=== PATIENT | male | born 1980 | race Caucasian/White ===

== ENCOUNTER 2018-04-11 11:30 | Emergency (ER) | payer BC, SELFPAY ==
--- NOTE | 2018-04-11 11:48 | ED.GENADUL_ITS ---
Discharge Plan Disposition Patient Disposition: HOME Condition: Stable Discharge Details Chief Complaint: Sorethroat Clinical Impression: Acute left otitis media, Pharyngitis Primary Care Provider: Clarence Ellis ED Provider: Gatito Patel Home Meds and New Rx's Prescriptions: New amoxicillin 875 mg tablet 875 mg PO BID Qty: 20 RF: 0 Continue citalopram [Celexa] 20 MG tablet 20 mg PO DAILY RF: 0 omeprazole magnesium [Prilosec OTC] 20 MG tablet,delayed release (DR/EC) 20 mg PO DAILY RF: 0 nabumetone 750 MG tablet 750 mg PO DAILY PRN PRNRF: 0 Discharge Instructions Instructions: Pharyngitis (ED), Otitis Media (ED) Additional Instructions: Feel free to return to the emergency department for any new or worsening symptoms otherwise follow-up with your primary care provider for reassessment if not improving. Stand Alone Forms: Work Release Referrals: Clarence Ellis [Primary Care Provider] - (As needed for reassessment) Medical Decision Making Patient presenting to the emergency department for complaint of sore throat and left ear pain. Patient states that symptoms started yesterday and progressed throughout the day. Patient states some feeling of warmth and pressure to his left ear but denies any overall fever or chills, cough, difficulty breathing. Physical exam is positive for findings of left otitis media and mild tonsillary erythema but otherwise no signs of peritonsillar abscess, hepatitis, retropharyngeal abscess. Given 2 days of symptoms patient was placed upon amoxicillin. After discussion of diagnosis and plan of care patient states no further needs, questions, or concerns and states clear understanding to return to the emergency department for any worsening symptoms. Patient to follow-up with primary care provider as needed for reassessment if not improving . HPI General Mode of arrival: ambulatory . Date/Time Provider Initiated Documentation: 04/11/18 11:34 . Limitations to Documentation: no limitations . Information obtained by: patient and RN notes reviewed . History of Present Illness 37 year old M presents to the emergency department with the chief complaint of sore throat/ear ache, described as moderate, with intensity rated at 7. Quality is described as aching, and is localized to the left. Patient reports no radiation. Patient started experiencing this day(s) (2) and it has been constant. No relieving factors improve symptom(s), No exacerbating factors reported . Patient notes no other symptoms.. Patient did receive the following treatments prior to arrival, none Related Data Home Medications Medication Instructions Recorded Confirmed citalopram [Celexa] 20 mg PO DAILY 08/19/16 04/11/18 omeprazole magnesium [Prilosec OTC] 20 mg PO DAILY 08/19/16 04/11/18 nabumetone 750 mg PO DAILY PRN PRN 03/16/17 04/11/18 amoxicillin 875 mg PO BID #20 tab 04/11/18 Previous Rx's Medication Instructions Recorded amoxicillin 875 mg PO BID #20 tab 04/11/18 Allergies Allergy/AdvReac Type Severity Reaction Status Date / Time shellfish derived Allergy Severe Anaphylaxsi Unverified 04/11/18 11:54 s pertussis vaccine,adsorbed Allergy Mild unknown Unverified 04/11/18 11:54 [Pertussis Vaccine,Adsorbed] latex Allergy Skin Rash Unverified 04/11/18 11:54 silicone Allergy Skin Rash Unverified 04/11/18 11:54 Review of Systems Constitutional Denies body ache(s) and Denies fever(s) ENT Reports as per HPI, Denies ear discharge, Reports otalgia, Reports facial pain, Reports nasal congestion, Reports sore throat, Denies throat swelling and Denies tongue swelling Cardiovascular Denies chest pain and Denies dyspnea Respiratory Denies dyspnea Gastrointestinal Denies abdominal pain, Reports diarrhea, Denies nausea and Denies vomiting Integumentary/Breasts Denies rash Neurologic Denies confusion and Denies sensory deficit Psychiatric Denies confusion Allergic/Immunologic Denies throat swelling and Denies tongue swelling FORMERLY [facility] Medical History Abnormal weight gain Binge eating Depression Elevated glucose GERD (gastroesophageal reflux disease) Kidney stone Low back pain Sleep disorder Thoracic back pain Social History Smoking/Tobacco Use Status: Never Surgical History EGD - MAC (03/18/17) Exam Const General: cooperative, no acute distress and not ill appearing Orientation: alert, awake and oriented x3 HENMT Ears: TM normal on the right and TM abnormal bulging on the left, erythematous on the left and with loss of landmarks on the left General nose exam: external nose normal Face and sinus: normal facial exam Mouth: oral mucosae normal, oropharynx normal, moist mucous membranes, no drooling and no trismus Throat: posterior oropharynx abnormal edema (mild) Resp Effort & Inspection: normal respiratory effort, able to speak in complete sentences and no respiratory distress Auscultation: clear to auscultation bilaterally Cardio Rate: regular rate Rhythm: regular rhythm Heart Sounds: S1 normal and S2 normal Skin General skin exam: no rashes or lesions noted Neuro General: alert, awake, oriented x3, moves all extremities and no focal motor deficits Sensory Exam: no sensory deficits noted
[2018-04-11 11:50] VITALS: BP 121/73; PULSE 86; RESP 18; TEMP 37
== END 2018-04-11 12:15 | disposition home or self-care (01) ==
LOC: ER 12:26
PROVIDERS: Emergency Provider Nurse Practitioner Family; PCP Specialist/Technologist Athletic Trainer
DX: J02.9 Acute pharyngitis, unspecified (principal); H66.92 Otitis media, unspecified, left ear
CPT/HCPCS: 99283

== ENCOUNTER 2018-05-30 07:42 | Emergency (ER) | payer BC, SELFPAY ==
[2018-05-30 07:49] VITALS: BP 144/83; PULSE 119; RESP 16; TEMP 37; O2SAT 93
--- NOTE | 2018-05-30 08:06 | W.ED.GENAD ---
Discharge Plan Disposition Patient Disposition: HOME Condition: Good Discharge Details Chief Complaint: RashLesion Clinical Impression: Urticaria Primary Care Provider: Clarence Ellis ED Provider: Cabrera Trivedi Home Meds and New Rx's Prescriptions: New prednisone 20 mg tablet 60 mg PO DAILY 5 Days Qty: 15 RF: 0 No Action citalopram [Celexa] 20 MG tablet 20 mg PO DAILY RF: 0 omeprazole magnesium [Prilosec OTC] 20 MG tablet,delayed release (DR/EC) 20 mg PO DAILY RF: 0 nabumetone 750 MG tablet 750 mg PO DAILY PRN PRNRF: 0 Discharge Instructions Instructions: Urticaria (ED) Additional Instructions: follow up with your primary care provider within a week especially if symptoms continue and discuss having allergy testing if you have worsening trouble breathing, severe abdominal pain, persistent vomit or trouble swallowing liquids return to the emergency department Stand Alone Forms: Work Release Medical Decision Making 37 yo male comes in with rash that is itching, started on back yesterday and now on abdomen arms and legs. Has no mucous membrane involvement on exam, has what appears to be urticaria on abdomen, back and arms and legs (mild erythema of various sizes that is blanching and not tender or warm to touch). No respiratory or gi symptoms so doubt anaphylaxis. Has tried benadryl without relief, will try steroids and advised f/u with pcp and return precautions given. Denies new meds or detergents. who sleeps in same bed has no symptoms so doubt bed bugs and no itching of hands so doubt scabies Differential Diagnosis uritcaria, contact dermatitis HPI General Mode of arrival: ambulatory. Date/Time Provider Initiated Documentation: 05/30/18 08:00. Limitations to Documentation: no limitations. Information obtained by: patient. History of Present Illness 37 year old M presents to the emergency department with the chief complaint of rash, described as mild, and is localized to the back, abdomen, upper extremity and lower extremity. Patient started experiencing this day(s) (1) and it has been constant. No relieving factors improve symptom(s), No exacerbating factors reported . Related Data Home Medications Medication Instructions Recorded Confirmed citalopram [Celexa] 20 mg PO DAILY 08/19/16 05/30/18 omeprazole magnesium [Prilosec OTC] 20 mg PO DAILY 08/19/16 05/30/18 nabumetone 750 mg PO DAILY PRN PRN 03/16/17 05/30/18 prednisone 60 mg PO DAILY 5 Days #15 tab 05/30/18 Previous Rx's Medication Instructions Recorded prednisone 60 mg PO DAILY 5 Days #15 tab 05/30/18 Allergies Allergy/AdvReac Type Severity Reaction Status Date / Time shellfish derived Allergy Severe Anaphylaxsi Unverified 05/30/18 07:52 s pertussis vaccine,adsorbed Allergy Mild unknown Unverified 05/30/18 07:52 [Pertussis Vaccine,Adsorbed] latex Allergy Skin Rash Unverified 05/30/18 07:52 silicone Allergy Skin Rash Unverified 05/30/18 07:52 General Stated Complaint: RashLesion GAMALIEL: 4 Review of Systems Review of Systems All systems reviewed & are unremarkable except as noted in HPI and below Constitutional Denies chills, Denies fever(s) and Denies weakness Eyes Denies loss of vision ENT Denies change in voice Cardiovascular Denies chest pain and Denies dyspnea Respiratory Denies dyspnea Gastrointestinal Denies abdominal pain, Denies nausea and Denies vomiting Genitourinary Denies dysuria Musculoskeletal Denies joint swelling Neurologic Denies loss of vision and Denies weakness Psychiatric Denies depression Endocrine Denies cold intolerance and Denies heat intolerance Exam Const General: no acute distress Orientation: alert HENRI Head: normal to inspection Ears: external ears normal General nose exam: external nose normal Mouth: moist mucous membranes Eyes General: appearance normal, both eyes and all related structures Neck Neck: normal visual inspection Resp Effort & Inspection: normal respiratory effort and able to speak in complete sentences Cardio Rate: regular rate (92 on my exam) Neuro General: alert and oriented x3 Extrem General: normal to inspection Psych Mental Status: mental status grossly normal Course Vital Signs Temperature 37 C 05/30/18 07:49 Pulse 119 H 05/30/18 07:49 Respiratory Rate 16 05/30/18 07:49 Blood Pressure 144/83 H 05/30/18 07:49 Pulse Oximetry 93 L 05/30/18 07:49 Temperature 37 C 05/30/18 07:49 Temperature Source Skin 05/30/18 07:49 Pulse 119 H 05/30/18 07:49 Respiratory Rate 16 05/30/18 07:49 Respiratory Effort Non-Labored 05/30/18 07:49 Blood Pressure 144/83 H 05/30/18 07:49 Blood Pressure Position Sitting 05/30/18 07:49 Pulse Oximetry 93 L 05/30/18 07:49 Oxygen Delivery Method Room Air 05/30/18 07:49 Oxygen Flow Rate 0 05/30/18 07:49 Pain Level 2 05/30/18 07:49
--- NOTE | 2018-05-30 08:10 | ED.GENADUL_ITS ---
Discharge Plan Disposition Patient Disposition: HOME Condition: Good Discharge Details Chief Complaint: RashLesion Clinical Impression: Urticaria Primary Care Provider: Clarence Ellis ED Provider: Cabrera Trivedi Home Meds and New Rx's Prescriptions: New prednisone 20 mg tablet 60 mg PO DAILY 5 Days Qty: 15 RF: 0 No Action citalopram [Celexa] 20 MG tablet 20 mg PO DAILY RF: 0 omeprazole magnesium [Prilosec OTC] 20 MG tablet,delayed release (DR/EC) 20 mg PO DAILY RF: 0 nabumetone 750 MG tablet 750 mg PO DAILY PRN PRNRF: 0 Discharge Instructions Instructions: Urticaria (ED) Additional Instructions: follow up with your primary care provider within a week especially if symptoms continue and discuss having allergy testing if you have worsening trouble breathing, severe abdominal pain, persistent vomit or trouble swallowing liquids return to the emergency department Stand Alone Forms: Work Release Medical Decision Making 37 yo male comes in with rash that is itching, started on back yesterday and now on abdomen arms and legs. Has no mucous membrane involvement on exam, has what appears to be urticaria on abdomen, back and arms and legs (mild erythema of various sizes that is blanching and not tender or warm to touch). No respiratory or gi symptoms so doubt anaphylaxis. Has tried benadryl without relief, will try steroids and advised f/u with pcp and return precautions given. Denies new meds or detergents. who sleeps in same bed has no symptoms so doubt bed bugs and no itching of hands so doubt scabies Differential Diagnosis uritcaria, contact dermatitis HPI General Mode of arrival: ambulatory . Date/Time Provider Initiated Documentation: 05/30/18 08:00 . Limitations to Documentation: no limitations . Information obtained by: patient . History of Present Illness 37 year old M presents to the emergency department with the chief complaint of rash, described as mild, and is localized to the back, abdomen, upper extremity and lower extremity. Patient started experiencing this day(s) (1) and it has been constant. No relieving factors improve symptom(s), No exacerbating factors reported . Related Data Home Medications Medication Instructions Recorded Confirmed citalopram [Celexa] 20 mg PO DAILY 08/19/16 05/30/18 omeprazole magnesium [Prilosec OTC] 20 mg PO DAILY 08/19/16 05/30/18 nabumetone 750 mg PO DAILY PRN PRN 03/16/17 05/30/18 prednisone 60 mg PO DAILY 5 Days #15 tab 05/30/18 Previous Rx's Medication Instructions Recorded prednisone 60 mg PO DAILY 5 Days #15 tab 05/30/18 Allergies Allergy/AdvReac Type Severity Reaction Status Date / Time shellfish derived Allergy Severe Anaphylaxsi Unverified 05/30/18 07:52 s pertussis vaccine,adsorbed Allergy Mild unknown Unverified 05/30/18 07:52 [Pertussis Vaccine,Adsorbed] latex Allergy Skin Rash Unverified 05/30/18 07:52 silicone Allergy Skin Rash Unverified 05/30/18 07:52 General Stated Complaint: RashLesion GAMALIEL: 4 Review of Systems Review of Systems All systems reviewed & are unremarkable except as noted in HPI and below Constitutional Denies chills, Denies fever(s) and Denies weakness Eyes Denies loss of vision ENT Denies change in voice Cardiovascular Denies chest pain and Denies dyspnea Respiratory Denies dyspnea Gastrointestinal Denies abdominal pain, Denies nausea and Denies vomiting Genitourinary Denies dysuria Musculoskeletal Denies joint swelling Neurologic Denies loss of vision and Denies weakness Psychiatric Denies depression Endocrine Denies cold intolerance and Denies heat intolerance Exam Const General: no acute distress Orientation: alert HENOR Head: normal to inspection Ears: external ears normal General nose exam: external nose normal Mouth: moist mucous membranes Eyes General: appearance normal, both eyes and all related structures Neck Neck: normal visual inspection Resp Effort & Inspection: normal respiratory effort and able to speak in complete sentences Cardio Rate: regular rate (92 on my exam) Neuro General: alert and oriented x3 Extrem General: normal to inspection Psych Mental Status: mental status grossly normal Course Vital Signs Temperature 37 C 05/30/18 07:49 Pulse 119 H 05/30/18 07:49 Respiratory Rate 16 05/30/18 07:49 Blood Pressure 144/83 H 05/30/18 07:49 Pulse Oximetry 93 L 05/30/18 07:49 Temperature 37 C 05/30/18 07:49 Temperature Source Skin 05/30/18 07:49 Pulse 119 H 05/30/18 07:49 Respiratory Rate 16 05/30/18 07:49 Respiratory Effort Non-Labored 05/30/18 07:49 Blood Pressure 144/83 H 05/30/18 07:49 Blood Pressure Position Sitting 05/30/18 07:49 Pulse Oximetry 93 L 05/30/18 07:49 Oxygen Delivery Method Room Air 05/30/18 07:49 Oxygen Flow Rate 0 05/30/18 07:49 Pain Level 2 05/30/18 07:49
== END 2018-05-30 08:15 | disposition home or self-care (01) ==
PROVIDERS: Emergency Provider Emergency Medicine; PCP Specialist/Technologist Athletic Trainer
DX: L50.9 Urticaria, unspecified (principal)
CPT/HCPCS: 99283

== ENCOUNTER 2018-06-05 17:27 | Emergency (ER) | payer BC, SELFPAY ==
[2018-06-05] VITALS (61 sets, daily range): BP systolic 135–152; BP diastolic 56–97; PULSE 83–101; RESP 13–31; TEMP 36.7; O2SAT 92–100
--- NOTE | 2018-06-05 17:54 | DI.RAD_ITS ---
SYMPTOM/DIAGNOSIS: COUGH WITH RIB PAIN PA AND LATERAL CHEST: The lungs are well expanded. There is no pneumothorax or pleural effusion. No infiltrates are seen in the lungs. The heart is not enlarged. The hilar structures, mediastinum and tracheal air column are intact. No acute rib fracture is seen.
--- NOTE | 2018-06-05 18:38 | ED.GENADUL_ITS ---
Discharge Plan Disposition Patient Disposition: HOME Condition: Fair Discharge Details Chief Complaint: Chest/Rib Clinical Impression: Bronchitis Primary Care Provider: Clarence Ellis ED Provider: Chelsea Mills Home Meds and New Rx's Prescriptions: New azithromycin 250 mg tablet 250 mg PO DAILY 4 Days Qty: 4 RF: 0 Continue omeprazole magnesium [Prilosec OTC] 20 MG tablet,delayed release (DR/EC) 20 mg PO DAILY RF: 0 nabumetone 750 MG tablet 750 mg PO DAILY PRN PRNRF: 0 Discharge Instructions Instructions: Acute Bronchitis (ED) Additional Instructions: Encourage hydration. Tylenol and/or ibuprofen as needed for discomfort. No rib fracture abnormality was noted on your chest x-ray. Exam is primarily concerning for bronchitis. However, I am concerned that you may be developing a pneumonia. We will treat you with azithromycin as well as inhaled steroids. You may use the albuterol inhaler 2puffs every 4 hours as needed for shortness of breath or wheezing. Please always use with a spacer. You will need to follow up with primary care in one week for reevaluation. At that time, please also discuss your elevated glucose and elevated liver enzymes. You will need to have this evaluated further. If you develop increased pain, difficulty breathing, inability to stay hydrated or other new/worsening symptoms please seek care urgently once again. Referrals: Clarence Ellis [Primary Care Provider] - Discharge Data Discharge Date/Time-TO BE ENTERED AT DEPARTURE: 06/05/18 20:58 Medical Decision Making Patient is a 37-year-old male, accompanied by significant other, chief complaint shortness of breath, cough and left-sided chest discomfort. He reports the cough is been present for the past 3 weeks. States the cough has been mildly productive. He is endorsing shortness of breath, particularly with the cough. States that today, while having a coughing fit he had a sudden onset of left-sided chest wall discomfort which is reproducible on exam. No known trauma. Since that time, he said pain with coughing and deep inhalation. reports that he sounded wheezy. On exam, he is noted to be diffusely wheezy with expiration. He is tachycardic at the 1 teens at the time of my exam. Oxygen is 98% at the time of my exam. However, when he first presented his O2 was slightly low at 94. Nontoxic. No calf tenderness. No recent travel , patient is a non-smoker. However, I am concerned for possible PE although this is not my #1 differential diagnosis. We will obtain laboratory evaluation as well as chest x-ray. Given the progression of symptoms, I am concern he may have developed pneumonia. Patient has history of GERD, obesity, NASRA and kidney stones. Will also give albuterol updraft. Labs significant for leukocytosis. Glucose is over 300. Patient has had elevated glucose previously. He reports that he last had this assessed by his primary care 1 year ago. No anion gap. Liver enzymes are also elevated. These have not been elevated historically. I discussed this with the patient. I did reevaluate his abdomen and he continues to have no discomfort in the right upper quadrant. This may be related to his acute illness. I have asked that he discuss this further with his primary care and have this reevaluated Chest x-ray reviewed by radiologist. No pneumothorax, effusion noted. No cardiomegaly. No displaced rib fracture noted. No acute cardiopulmonary process visualized by radiologist. Discussed these findings with the patient. After albuterol inhaler, patient sounds much more clear. He is feeling much improved. He was on steroids last week and did not feel that this was improving her cough at that time. He did consider repeating the steroids given the diagnosis of bronchitis and wheezing on exam. However, with his elevated glucose, I am concerned that this may be what initially caused his sudden bump in glucose. Patient be placed on antibiotics as I am still concern for possible pneumonia given the leukocytosis and findings on physical exam. Advised Tylenol and/or ibuprofen as needed for discomfort. He will be prescribed albuterol inhaler with spacer. He was given strict return precautions. He will follow-up with his primary care this week for reevaluation and to discuss his elevated glucose as well as the elevation in his liver enzymes. All of his questions and concerns were addressed and he is in agreement this plan. [facility] General Mode of arrival: ambulatory . Date/Time Provider Initiated Documentation: 06/05/18 17:53 . Limitations to Documentation: no limitations . Information obtained by: patient and family . History of Present Illness 37 year old M presents to the emergency department with the chief complaint of cough and chest discomfort, described as moderate, with intensity rated at 5. Quality is described as aching, and is localized to the chest and left. Patient reports no radiation. Patient started experiencing this hour(s) and it has been constant. Movement worsens symptoms and Other factors that worsen symptoms (coughing and deep breaths) . Patient notes chest pain, cough and shortness of breath; denies fever/chills, headaches, loss of appetite, nausea/vomiting, rash and weakness. Patient did receive the following treatments prior to arrival, NSAID Related Data Home Medications Medication Instructions Recorded Confirmed omeprazole magnesium [Prilosec OTC] 20 mg PO DAILY 08/19/16 06/05/18 nabumetone 750 mg PO DAILY PRN PRN 03/16/17 06/05/18 azithromycin 250 mg PO DAILY 4 Days #4 tab 06/05/18 Previous Rx's Medication Instructions Recorded azithromycin 250 mg PO DAILY 4 Days #4 tab 06/05/18 Allergies Allergy/AdvReac Type Severity Reaction Status Date / Time shellfish derived Allergy Severe Anaphylaxsi Unverified 06/05/18 17:36 s pertussis vaccine,adsorbed Allergy Mild unknown Unverified 06/05/18 17:36 [Pertussis Vaccine,Adsorbed] latex Allergy Skin Rash Unverified 06/05/18 17:36 silicone Allergy Skin Rash Unverified 06/05/18 17:36 General Stated Complaint: Chest/Rib GAMALIEL: 3 Review of Systems Constitutional Reports as per HPI, Denies chills, Denies fever(s) and Denies headache(s) ENT Reports as per HPI, Denies abnormal hearing, Denies change in voice, Denies vertigo, Denies ear discharge, Denies otalgia, Denies headache(s), Reports nasal congestion, Denies sinus pain, Denies sinus pressure and Reports sore throat Cardiovascular Reports as per HPI and Reports chest pain (Left lateral chest wall discomfort began suddenly this afternoon after) Respiratory Reports as per HPI Gastrointestinal Reports as per HPI, Denies abdominal pain, Denies change in stool character, Denies nausea and Denies vomiting Genitourinary Denies system reviewed and no additional complaints, except as docu (Denies any change in urinary habits) Musculoskeletal Reports as per HPI and Denies back pain Integumentary/Breasts Reports as per HPI, Denies rash, Denies unusual bruising and Denies wounds Neurologic Denies abnormal hearing, Denies vertigo and Denies headache(s) Exam Const General: cooperative, healthy appearing, comfortable, no acute distress, well developed and well groomed Nutritional Appearance: well nourished and overweight Orientation: alert and awake [facility] Head: normal to inspection, normocephalic and atraumatic Ears: hearing grossly normal bilaterally, external ears normal and TM's normal bilaterally General nose exam: external nose normal and nares normal Face and sinus: normal facial exam, sinuses nontender and face symmetric Mouth: oral mucosae normal, lip normal, tongue normal, moist mucous membranes, no muffled voice and no trismus Teeth and gingiva: dentition normal Throat: posterior oropharynx normal, tonsils normal and uvula midline Eyes General: appearance normal, both eyes and all related structures Neck Neck: normal visual inspection, full ROM, no lymphadenopathy and no meningeal signs Chest Chest: abnormal palpation of chest wall (Patient has focal discomfort with palpation over the left lateral ribs near the number seventh rib. No pain with AP or lateral chest wall compression.) and no crepitus Resp Effort & Inspection: normal respiratory effort, able to speak in complete sentences and no respiratory distress Auscultation: clear to auscultation bilaterally, no rales, no rhonchi and no wheezes Cardio Rate: regular rate Rhythm: regular rhythm Heart Sounds: S1 normal and S2 normal GI Inspection: normal to inspection Palpation: soft, no hepatosplenomegaly, not firm, no guarding and nontender Back/Spine/Pelvis Thoracic/Lumbar Spine: thoracic and lumbar spine normal to inspection Skin General skin exam: no rashes or lesions noted Trauma: no lacerations or abrasions Neuro General: alert and awake Cognition: normal cognition Speech: speech normal Gait: normal gait Extrem General: normal to inspection, no pedal edema, no calf tenderness and normal gait Psych Appearance: grossly normal and well kempt Mental Status: mental status grossly normal Speech and Movement: speech and movement normal Course Vital Signs Temperature 36.7 C 06/05/18 17:34 Pulse 101 H 06/05/18 17:34 Respiratory Rate 20 06/05/18 17:34 Blood Pressure 149/84 H 06/05/18 17:34 Pulse Oximetry 94 L 06/05/18 17:34 Temperature 36.7 C 06/05/18 17:34 Temperature Source Skin 06/05/18 17:34 Pulse 101 H 06/05/18 17:34 Respiratory Rate 20 06/05/18 17:34 Respiratory Effort 06/05/18 17:57 Respiratory Depth Shallow 06/05/18 17:57 Respiratory Pattern Normal 06/05/18 17:57 Blood Pressure 149/84 H 06/05/18 17:34 Blood Pressure Position Sitting 06/05/18 17:34 Pulse Oximetry 94 L 06/05/18 17:34 Oxygen Delivery Method Room Air 06/05/18 17:34 Oxygen Flow Rate 0 06/05/18 17:34 Pain Level 8 06/05/18 17:57
--- NOTE | 2018-06-05 18:51 | DI.VRAD_ITS ---
EXAM: XR Chest, 2 Views EXAM DATE/TIME: 06/05/2018 5:55 PM CLINICAL HISTORY: 37 years old, male; Signs and symptoms; Cough; Patient HX: Cough with rib pain l side TECHNIQUE: XR of the chest, 2 views. COMPARISON: CR CHEST 2 VIEWS PA,LAT 06/19/2015 2:50 PM FINDINGS: Lungs: Clear lungs. Pleural space: No pneumothorax. No sizable pleural effusion. Heart/Mediastinum: No cardiomegaly. Bones/joints: No displaced rib fracture. IMPRESSION: 1. Clear lungs. 2. No displaced rib fracture. Dictated and Authenticated by: Eliazar Wright MD. Ordering:MATT AKERS MD
[2018-06-05 19:05] LABS: Abs Immature Grans 0.05 k/cumm (0.0-0.09); Absolute Eosinophil Count 1.21 k/cumm (0.0-0.7); Absolute Lymphocyte Count 2.49 k/cumm (1.2-3.4); Absolute Monocyte Count 0.64 k/cumm (0.11-0.7); Absolute Neutrophil Count 7.68 k/cumm (1.2-6.7); Basophils % 0.2; HGB 14.2 g/dL (13.5-17.5); Immature Grans % 0.4; Lymphocytes % 20.6; Mean Corpuscular Hemoglobin 28.1 pg (27.0-33.0); Mean Platelet Volume 11.2 fL (8.0-11.0); Monocytes % 5.3; Neutrophils % 63.5; Platelet Count 251 x1000/uL (130-400); RBC 5.06 m/cumm (4.50-6.00); RBC Distribution Width 14.6 % (11.8-14.1)
[2018-06-05 19:20] LABS: INR 1.1 (1.0-3.5); PTT Activated 21.2 sec (21.0-31.4); Prothrombin Time 10.4 sec (9.3-10.8)
[2018-06-05 19:21] LABS: ALT 158 U/L (12-78); AST 93 U/L (15-37); Absolute Basophil Count 0.02 k/cumm (0.0-0.2); Albumin 3.3 g/dL (3.4-5.0); Alkaline Phosphatase 133 U/L (46-116); Anion Gap 7.9 mmol/L (3-11); BUN 12 mg/dL (7-18); Bilirubin, Total 0.5 mg/dL (0.2-1.0); CO2 28.1 mmol/L (21.0-32.0); CREATININE 0.95 mg/dL (0.70-1.30); Calcium 8.7 mg/dL (8.5-10.1); Chloride 100 mmol/L (98-107); Glucose 325 mg/dL (70-100); Magnesium 1.9 mg/dL (1.8-2.4); Potassium 3.7 mmol/L (3.5-5.1); Sodium 136 mmol/L (136-145); Total Protein 6.9 g/dL (6.4-8.2)
[2018-06-05 19:25] LABS: Troponin I < 0.02 ng/mL (0.00-0.06)
[2018-06-05 19:40] LABS: D-Dimer 411 ng/mlFEU (<500)
[2018-06-05] MEDS: Albuterol 2.5 MG/3 ML INH SOLN VIAL UPD (19:40)
[2018-06-05] MEDS: Normal Saline 1,000 ML 1000 ML IV (19:50)
[2018-06-05] MEDS: Azithromycin 250 MG TAB 500 MG PO (20:34)
[2018-06-05] MEDS: Albuterol HFA 8 GM 60 PUFF INH IH (20:34)
== END 2018-06-05 20:58 | disposition home or self-care (01) ==
PROVIDERS: Emergency Provider Physician Assistant; PCP Specialist/Technologist Athletic Trainer
DX: J20.9 Acute bronchitis, unspecified (principal)
CPT/HCPCS: 36415; 80053; 94640; 96360; 99284; 71046; 83735; 84484; 85025; 85379; 85610; 85730; J7613

== ENCOUNTER 2018-06-12 10:25 | Outpatient (REF) | payer BC, SELFPAY ==
[2018-06-14 11:37] LABS: Hepatitis C Ab w Rflx HCV PCR Negative (NEGAT)
[2018-06-14 12:13] LABS: HBs Antibody, Quant 382.9 mIU/mL; Hepatitis B Surface Ab Positive
[2018-06-14 12:16] LABS: Hepatitis B Surface Ag Negative (NEGAT)
[2018-06-14 14:10] LABS: C-Peptide 4.2 ng/mL (1.1 - 4.4)
== END 2018-06-12 10:45 ==
LOC: NCHCN 10:25
PROVIDERS: PCP Specialist/Technologist Athletic Trainer; Visit Provider Specialist/Technologist Athletic Trainer
DX: R74.0 Nonspecific elevation of levels of transaminase and lactic acid dehydrogenase [LDH] (principal); Z11.59 Encounter for screening for other viral diseases; E11.65 Type 2 diabetes mellitus with hyperglycemia
CPT/HCPCS: 86706; 86803; 87340; 84681; 87350

== ENCOUNTER 2018-07-14 08:22 | Outpatient (CLI) | payer BC, SELFPAY ==
--- NOTE | 2018-07-14 11:00 | DIABASSESS_ITS ---
DESCRIPTION/ASSESSMENT: Flavio Singh presents for Medical Nutrition Therapy for diabetes with newly diagnosed type 2 diabetes. He has family history. He is experiencing thirst and frequent urination. Food - Flavio has made many changes to his food choices since diagnosis by decreasing sugar sweetened beverages; decreased his portions, increased fish and chicken. He has fruit smoothie for breakfast; occasionally snacks on fruit, chips or popcorn in small portions. He usually skips lunch and eats dinner 3-5PM of protein, vegetables, brown rice. He occasionally snacks on fruit, popcorn or a chocolate before bed. He states he has decreased 2 pant sizes over the past month. 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 He reports falling while walking. Medication - Metformin 750 twice daily Monitoring - initially 395 now 128-130 most mornings. Risks/Related health history - he mentions possibility of fatty liver, he takes Prilosec and has discontinued his antidepressant without negative effect. 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 He denies symptoms of depression. INTERVENTION: Food Guidelines - reviewed diabetes food guidelines; reinforced his present food choices and behaviors. He denies hunger or cravings. He feels good about his changes and believes he can continue them. He is encouraged to increase vegetables as he is able. Mindful eating regarding hunger/fullness briefly discussed. Physical Activity - Discussed possible activities and explained benefits for physical well being and diabetes management. He is currently not working due to school vacation and will explore ways to increase movement as prevention of medication progression. Sing/talk evaluation explained. Monitoring - discussed meaningful monitoring in pairs to obtain feedback about impact of food in blood sugars. Risks/Related health history - discussed weight loss and decrease in sugar intake as strategy to prevent fatty liver and he has already achieved weight loss and curbing sugar intake. Coping - reviewed impact of stress on glycemic control and weight management. Has good insight on stressors and managing them. ACTION PLAN: Continue current food plan; prioritize lower glycemic food choices; consider hunger/fullness Explore exercise inside i.e. walking in place on days he does not work; start slowly for short periods of time Monitor blood sugars around meals with more carbohydrate Individual MNT __4__ units billed TIME IN: 1055 OUT: 1200 No DM group education series being offered at this time.
== END 2018-07-14 08:42 ==
PROVIDERS: PCP Specialist/Technologist Athletic Trainer; Visit Provider Dietitian, Registered
DX: E11.9 Type 2 diabetes mellitus without complications (principal); Z71.3 Dietary counseling and surveillance
CPT/HCPCS: 97802

== ENCOUNTER 2018-07-31 11:03 | Outpatient (CLI) | payer BC, SELFPAY ==
[2018-07-31 12:49] LABS: Anion Gap 9.8 mmol/L (3-11); BUN 9 mg/dL (7-18); CO2 29.2 mmol/L (21.0-32.0); CREATININE 0.69 mg/dL (0.70-1.30); Calcium 9.1 mg/dL (8.5-10.1); Chloride 102 mmol/L (98-107); Cholesterol 173 mg/dL (50-200); Glucose 97 mg/dL (70-100); HDL Cholesterol 50 mg/dL (40-60); LDL CHOLESTEROL 109 mg/dL (<100); Potassium 4.4 mmol/L (3.5-5.1); Sodium 141 mmol/L (136-145); Triglyceride 57 mg/dL (30-150)
== END 2018-07-31 11:23 ==
PROVIDERS: PCP Specialist/Technologist Athletic Trainer; Visit Provider Specialist/Technologist Athletic Trainer
DX: Z00.00 Encounter for general adult medical examination without abnormal findings (principal); Z13.220 Encounter for screening for lipoid disorders; Z13.228 Encounter for screening for other metabolic disorders
CPT/HCPCS: 36415; 80048; 80061; 83721

== ENCOUNTER 2018-11-05 11:24 | Emergency (ER) | payer OTHER, SELFPAY ==
[2018-11-05 11:31] VITALS: BP 131/79; PULSE 86; RESP 16; TEMP 36.7; O2SAT 96
--- NOTE | 2018-11-05 12:05 | DI.RAD_ITS ---
SYMPTOMS/DIAGNOSIS: AXIAL LOAD INJURY, S/P FALL, PAIN IN L2-3 REGION LUMBAR SPINE: There is no evidence of fracture. The alignment appears normal. The disc spaces are well maintained. There are minimal degenerative changes. IMPRESSION: Minimal degenerative changes. No acute abnormality.
--- NOTE | 2018-11-05 12:12 | ED.GENADUL_ITS ---
Discharge Plan Disposition Patient Disposition: HOME Discharge Details Chief Complaint: Nk/Back Pain Clinical Impression: Back pain due to injury Primary Care Provider: Frances Kim ED Provider: Francisco Seth Home Meds and New Rx's Prescriptions: No Action Prilosec OTC 20 MG tablet,delayed release (DR/EC) 20 mg PO DAILY RF: 0 nabumetone 750 MG tablet 750 mg PO DAILY PRN PRNRF: 0 metformin 750 mg Tablet Extended Release 24 Hr 1,500 mg PO DAILY RF: 0 Discharge Instructions Instructions: Back Pain (ED) Additional Instructions: Your x-rays here in the emergency department were negative. Pain may persist over the next several weeks. Tylenol and Motrin are appropriate for pain. Referrals: Frances Kim [Primary Care Provider] - 1 week Discharge Data Discharge Date/Time-TO BE ENTERED AT DEPARTURE: 11/05/18 13:30 Medical Decision Making This is a nontoxic-appearing 38-year-old gentleman presenting with the above chief complaint. Vitals stable. Exam reveals focal tenderness over the lower back. No cauda equina symptoms. X-rays here are read as normal. We discussed supportive care at home. Return precautions provided. He will follow-up with primary care provider should symptoms persist. He is stable for discharge at this time. Imaging Data Radiologic Study: Attestation: I personally reviewed and interpreted this imaging study as follows: Imaging: X-Ray Radiologist's impression: No acute fracture or dislocation HPI General Date/Time Provider Initiated Documentation: 11/05/18 12:05 . HPI Narrative: Patient is a 38-year-old male presenting to the emergency department with a chief complaint of low back pain status post fall occurring here at work. Patient states that he slipped on the ground around falling backwards on his buttock region. He is complaining of a lot of pain in the tailbone and lower back region. No numbness or tingling in the legs. No other reported injuries Related Data Home Medications Medication Instructions Recorded Confirmed Prilosec OTC 20 mg PO DAILY 08/19/16 11/05/18 nabumetone 750 mg PO DAILY PRN PRN 03/16/17 11/05/18 metformin 1,500 mg PO DAILY 11/05/18 11/05/18 Allergies Allergy/AdvReac Type Severity Reaction Status Date / Time shellfish derived Allergy Severe Anaphylaxsi Unverified 11/05/18 11:33 s pertussis vaccine,adsorbed Allergy Mild unknown Unverified 11/05/18 11:33 [Pertussis Vaccine,Adsorbed] latex Allergy Skin Rash Unverified 11/05/18 11:33 silicone Allergy Skin Rash Unverified 11/05/18 11:33 General Stated Complaint: Nk/Back Pain GAMALIEL: 4 Review of Systems Constitutional Reports as per HPI, Denies fever(s), Denies weakness and Denies weight loss ENT Reports system reviewed and no additional complaints, except as docu and Denies neck pain Musculoskeletal Denies abnormal gait, Reports back pain, Denies deformity, Denies joint swelling, Denies neck pain, Denies numbness, Denies stiffness and Denies tingling Neurologic Denies abnormal gait, Denies numbness, Denies tingling and Denies weakness PFSH Medical History Abnormal weight gain Binge eating Depression Elevated glucose GERD (gastroesophageal reflux disease) Kidney stone Low back pain Sleep disorder Thoracic back pain Surgical History EGD - MAC (03/18/17) Social History Smoking/Tobacco Use Status: Never Alcohol Intake: never Drug use: Never Substance use type: does not use Do you feel safe in your relationship?: Yes Exam Const General: cooperative, healthy appearing, comfortable and no acute distress Nutritional Appearance: average body habitus Orientation: alert [facility] Head: normal to inspection General nose exam: external nose normal Face and sinus: normal facial exam Mouth: oral mucosae normal Eyes General: appearance normal, both eyes and all related structures Neck Neck: normal visual inspection, full ROM and supple Chest Chest: normal inspection of the chest and normal palpation of entire chest wall Resp Effort & Inspection: normal respiratory effort and able to speak in complete sentences Auscultation: clear to auscultation bilaterally Cardio Jugular venous pressure: no JVD Palpation: normal PMI Rate: regular rate Rhythm: regular rhythm Heart Sounds: S1 normal and S2 normal GI Inspection: normal to inspection Palpation: soft Back/Spine/Pelvis Back: no CVA tenderness Thoracic/Lumbar Spine: thoracic and lumbar spine normal to inspection, No thoracic spinal tenderness, lumbar spinal tenderness and No straight leg raise positive Pelvis: no pain with anterior-posterior compression Coccyx: tenderness Skin General skin exam: no rashes or lesions noted Neuro General: alert, awake and oriented x3 Speech: speech normal Motor: muscle tone normal throughout and strength 5/5 throughout Extrem General: normal to inspection and full ROM Course Vital Signs Temperature 36.7 C 11/05/18 11:31 Pulse 86 11/05/18 11:31 Respiratory Rate 16 11/05/18 11:31 Blood Pressure 131/79 11/05/18 11:31 Pulse Oximetry 96 11/05/18 11:31 Temperature 36.7 C 11/05/18 11:31 Temperature Source Skin 11/05/18 11:31 Pulse 86 11/05/18 11:31 Respiratory Rate 16 11/05/18 11:31 Respiratory Effort Non-Labored 11/05/18 11:31 Blood Pressure 131/79 11/05/18 11:31 Blood Pressure Position Sitting 11/05/18 11:31 Pulse Oximetry 96 11/05/18 11:31 Oxygen Delivery Method Room Air 11/05/18 11:31 Oxygen Flow Rate 0 11/05/18 11:31 Pain Level 7 11/05/18 11:55
--- NOTE | 2018-11-05 13:37 | DI.VRAD_ITS ---
EXAM: XR Lumbosacral Spine, 4 or 5 Views EXAM DATE/TIME: 11/05/2018 12:07 PM CLINICAL HISTORY: 38 years old, male; Injury or trauma; Fall; Work related; Initial encounter; Crushing; Injury date: 11/05/2018; Injury details: PT states he slipped and fell onto his tail bone TECHNIQUE: Imaging protocol: XR of the lumbosacral spine, 4 or 5 views. COMPARISON: CR LUMBAR SPINE COMPLETE 10/17/2015 2:24 PM FINDINGS: Anatomic alignment. No acute fracture. Pedicles and facets intact. Pelvic calcifications most likely representing calcified lymph nodes and largely unchanged from the prior exam. IMPRESSION: No evidence of acute bony abnormality. Dictated and Authenticated by: Andre Yoder MD. Ordering:ALEX Singh MD
== END 2018-11-05 13:30 | disposition home or self-care (01) ==
LOC: ER 12:48
PROVIDERS: Emergency Provider Physician Assistant; PCP Nurse Practitioner Family
DX: M54.5 Low back pain (principal)
CPT/HCPCS: 99283; 72110; 99282

== ENCOUNTER 2019-03-12 19:47 | Emergency (ER) | payer OTHER, SELFPAY ==
[2019-03-12 19:53] VITALS: BP 144/88; PULSE 82; RESP 19; TEMP 36.4; O2SAT 99
--- NOTE | 2019-03-12 20:07 | ED.GENADUL_ITS ---
Discharge Plan Disposition Patient Disposition: HOME Condition: Improving Discharge Details Chief Complaint: Abd Prob Clinical Impression: Abdominal pain, Nausea, vomiting, and diarrhea Primary Care Provider: Frances Kim ED Provider: Shyanne Townsend Home Meds and New Rx's Prescriptions: New ondansetron HCl [Zofran] 4 mg tablet 4 mg PO Q6H PRN (Reason: nausea and vomiting) Qty: 7 RF: 0 Continued Prilosec OTC 20 MG tablet,delayed release (DR/EC) 20 mg PO DAILY RF: 0 nabumetone 750 MG tablet 750 mg PO DAILY PRN PRNRF: 0 metformin 750 mg Tablet Extended Release 24 Hr 1,500 mg PO DAILY RF: 0 Discharge Instructions Instructions: Acute Nausea and Vomiting (ED), Acute Diarrhea (ED), Abdominal Pain (ED) Additional Instructions: Drink plenty of fluids and get plenty of rest. Take the zofran as needed and directed for nausea or vomiting. Follow up with primary doctor next week for re-evaluation. Return immediately to the emergency department with any worsening or new concerning symptoms. Stand Alone Forms: Work Release Discharge Data Discharge Date/Time-TO BE ENTERED AT DEPARTURE: 03/12/19 21:45 Discharge Physician: Shyanne Townsend Medical Decision Making 1997 -- 38-year-old male with history of GERD, diabetes, depression who presents with epigastric and left upper quadrant abdominal pain with multiple episodes of vomiting and diarrhea this evening that started 2 hours after eating a chicken peanut and buffalo wings. Vitals within normal limits. Patient appears nontoxic. His abdomen is soft and nontender. Appears most likely consistent with viral GI illness, food poisoning. As patient's abdomen is nontender and he felt at his normal baseline prior to eating dinner, do not see an indication for imaging at this time. Patient was offered IV and IV fluids but declined stating he would rather start with oral meds at this time. We will give a dose of Zofran, Pepcid and GI cocktail and reassess. 2129 --patient feels much better and is requesting to go home. He was able to drink fluids and no further nausea or vomiting. He denies any abdominal pain at this time. He has not had any further diarrhea while here. Abdomen soft and nontender. We will send home with a prescription for Zofran as well as 2 tabs for home. He has Prilosec at home. He requested a work note for tomorrow. He is advised to follow-up with his primary care doctor for reevaluation and return anytime if worse. HPI General Mode of arrival: ambulatory . Date/Time Provider Initiated Documentation: 03/12/19 19:48 . Limitations to Documentation: no limitations . Information obtained by: patient . HPI Narrative: Pt is a 38-year-old male with a history of GERD, diabetes, depression who presents with epigastric and left upper quadrant abdominal pain, vomiting and diarrhea that started 2 hours ago at home after eating chicken analia and buffalo wings 2 hours prior to that. Patient states his and son ate something different and do not have similar symptoms. Patient states his pain feels intermittent, sharp and stabbing. He has not taken any medication for his symptoms. He states he vomited approximate ly 4 times which is mainly chunks of food. He had multiple episodes of loose brown diarrhea over the past hour. He denies any fever, urinary symptoms, recent sick contacts, recent travel or recent antibiotics. Related Data Home Medications Medication Instructions Recorded Confirmed Prilosec OTC 20 mg PO DAILY 08/19/16 03/12/19 nabumetone 750 mg PO DAILY PRN PRN 03/16/17 03/12/19 metformin 1,500 mg PO DAILY 11/05/18 03/12/19 ondansetron HCl [Zofran] 4 mg PO Q6H PRN #7 tab 03/12/19 Previous Rx's Medication Instructions Recorded ondansetron HCl [Zofran] 4 mg PO Q6H PRN #7 tab 03/12/19 Allergies Allergy/AdvReac Type Severity Reaction Status Date / Time shellfish derived Allergy Severe Anaphylaxsi Unverified 03/12/19 19:55 s pertussis vaccine,adsorbed Allergy Mild unknown Unverified 03/12/19 19:55 [Pertussis Vaccine,Adsorbed] latex Allergy Skin Rash Unverified 03/12/19 19:55 silicone Allergy Skin Rash Unverified 03/12/19 19:55 General Stated Complaint: Abd Prob GAMALIEL: 3 Review of Systems Review of Systems All systems reviewed & are unremarkable except as noted in HPI and below Constitutional Reports as per HPI, Denies chills and Denies fever(s) Eyes Denies blurry vision ENT Denies dizziness, Denies sore throat and Denies throat swelling Cardiovascular Denies chest pain and Denies dyspnea Respiratory Denies cough and Denies dyspnea Gastrointestinal Reports abdominal pain, Reports diarrhea and Reports vomiting Genitourinary Denies hematuria and Denies dysuria Musculoskeletal Denies back pain and Denies numbness Integumentary/Breasts Denies lesions and Denies rash Neurologic Denies dizziness, Denies focal weakness and Denies numbness Allergic/Immunologic Denies throat swelling [facility] Medical History Abnormal weight gain Binge eating Depression Elevated glucose GERD (gastroesophageal reflux disease) Kidney stone Low back pain Sleep disorder Thoracic back pain Surgical History EGD - MAC (03/18/17) Social History Smoking/Tobacco Use Status: Never Alcohol Intake: never Drug use: Never Substance use type: does not use Do you feel safe at home: Yes Do you feel safe in your relationship?: Yes Exam Const General: cooperative, healthy appearing and no acute distress HENMT Head: normal to inspection Face and sinus: normal facial exam Eyes General: appearance normal, both eyes and all related structures EOM: EOM intact bilaterally Neck Neck: normal visual inspection and No submandibular swelling Lymphatic: no lymphadenopathy noted Chest Chest: normal inspection of the chest and no tenderness Resp Effort & Inspection: normal respiratory effort and able to speak in complete sentences Auscultation: clear to auscultation bilaterally Cardio Rate: regular rate Rhythm: regular rhythm GI Inspection: normal to inspection Palpation: soft, not firm, not rigid and nontender Auscultation: normal bowel sounds Male General Exam: Yes normal external exam Skin General skin exam: no rashes or lesions noted Neuro General: alert, awake and oriented x3 Cognition: normal cognition Speech: speech normal Motor: muscle tone normal throughout Sensory Exam: no sensory deficits noted Extrem General: normal to inspection, full ROM, normal capillary refill, no calf tenderness bilaterally and no edema Psych Appearance: grossly normal Mental Status: mental status grossly normal Speech and Movement: speech and movement normal Affect: normal affect Course Vital Signs Temperature 97.5 F L 03/12/19 19:53 Pulse 82 03/12/19 19:53 Respiratory Rate 19 03/12/19 19:53 Blood Pressure 144/88 H 03/12/19 19:53 Pulse Oximetry 99 03/12/19 19:53 Temperature 97.5 F L 03/12/19 19:53 Temperature Source Skin 03/12/19 19:53 Pulse 82 03/12/19 19:53 Respiratory Rate 03/12/19 19:53 Respiratory Effort Non-Labored 03/12/19 19:57 Blood Pressure 144/88 H 03/12/19 19:53 Blood Pressure Position Sitting 03/12/19 19:53 Pulse Oximetry 99 03/12/19 19:53 Oxygen Delivery Method Room Air 03/12/19 19:53 Oxygen Flow Rate 0 03/12/19 19:53 Pain Level 7 03/12/19 20:03
[2019-03-12] MEDS: Ondansetron O.D.T. 4 MG TABEF PO (20:20)
--- NOTE | 2019-03-12 20:32 | NUR.NOTE ---
Pt refuses IV/blood/IVF. zofran admin PO at 2019. Per MD wait apx 20-30 min to admin remaining meds then perform PO challenge. Pt advised with verbal understanding.Nursing Note:
[2019-03-12] MEDS: Famotidine 20 MG TAB PO (20:42)
--- NOTE | 2019-03-12 21:03 | NUR.NOTE ---
PO challenge complete, pt states nausea resolved, pain 1/10. pt tolerates PO fluids well without incident. MD advised.Nursing Note:
[2019-03-12] MEDS: Ondansetron O.D.T. 4 MG TABEF 8 MG PO (21:40)
[2019-03-12 21:41] VITALS: BP 121/70; PULSE 74; RESP 18; TEMP 36.4; O2SAT 99
== END 2019-03-12 21:45 | disposition home or self-care (01) ==
PROVIDERS: Emergency Provider Physician Assistant; PCP Nurse Practitioner Family
DX: R11.2 Nausea with vomiting, unspecified (principal); R19.7 Diarrhea, unspecified; R10.13 Epigastric pain; R10.12 Left upper quadrant pain; E11.9 Type 2 diabetes mellitus without complications; Z79.84 Long term (current) use of oral hypoglycemic drugs
CPT/HCPCS: 99283

== ENCOUNTER 2019-03-26 18:03 | Outpatient (REF) | payer OTHER, SELFPAY ==
[2019-03-26 21:20] LABS: ALT 25 U/L (16-63); AST 16 U/L (15-37); Albumin 3.9 g/dL (3.4-5.0); Alkaline Phosphatase 89 U/L (46-116); Bilirubin, Direct 0.12 mg/dL (0.00-0.20); Bilirubin, Total 0.4 mg/dL (0.2-1.0); Total Protein 7.5 g/dL (6.4-8.2)
== END 2019-03-26 18:23 ==
LOC: NCHCN 18:03
PROVIDERS: PCP Nurse Practitioner Family; Visit Provider Nurse Practitioner Family
DX: E11.9 Type 2 diabetes mellitus without complications (principal); R74.0 Nonspecific elevation of levels of transaminase and lactic acid dehydrogenase [LDH]; G47.30 Sleep apnea, unspecified
CPT/HCPCS: 80076

== ENCOUNTER 2019-05-11 12:30 | Emergency (ER) | payer OTHER, SELFPAY ==
[2019-05-11 12:34] VITALS: BP 156/88; PULSE 85; RESP 20; TEMP 36.6; O2SAT 100
[2019-05-11] MEDS: EPINEPHrine 1 MG/ML AMP pres-free 0.3 MG IM (12:39)
--- NOTE | 2019-05-11 12:43 | ED.GENADUL_ITS ---
Discharge Plan Disposition Patient Disposition: HOME Condition: Stable Discharge Details Chief Complaint: Allergic Clinical Impression: Anaphylaxis Primary Care Provider: Frances Kim ED Provider: Cabrera Trivedi Home Meds and New Rx's Prescriptions: New prednisone 20 mg tablet 60 mg PO DAILY 4 Days Qty: 12 RF: 0 Continued Prilosec OTC 20 MG tablet,delayed release (DR/EC) 20 mg PO DAILY RF: 0 metformin 750 mg Tablet Extended Release 24 Hr 1,500 mg PO DAILY RF: 0 Discharge Instructions Instructions: Anaphylaxis (ED) Additional Instructions: if you develop a rash with difficulty breathing, abdominal pain, difficulty swallowing or abdominal pain/vomit use your epi pen and return to the emergency department Medical Decision Making 38 yo male who has a hx of shellfish allergy causing anaphylaxis was at work and he started to clean a pot tthat had clam chowder and developed itching and all over his body. He denies any other new foods or respiratory or gi symptoms. He is HD stable, does have diffuse urticaria on exam with clear lungs. Suspect he is having anaphylaxis again, will tx with epi, steroids, h2 blockers and benadryl and reassess. pt remains stable and has no symptoms. Was observed without reccurrence and he has an epi pen at home per pt. Will d/c on steroids and return precautions given Differential Diagnosis Differential Diagnosis: anaphylaxis, allergic reaction HPI General Mode of arrival: ambulatory . Date/Time Provider Initiated Documentation: 05/11/19 12:35 . Limitations to Documentation: no limitations . Information obtained by: patient . History of Present Illness 38 year old M presents to the emergency department with the chief complaint of itching rash, described as moderate, Patient started experiencing this minute(s) (20) No relieving factors improve symptom(s), No exacerbating factors reported . Related Data Home Medications Medication Instructions Recorded Confirmed Prilosec OTC 20 mg PO DAILY 08/19/16 05/11/19 metformin 1,500 mg PO DAILY 11/05/18 05/11/19 prednisone 60 mg PO DAILY 4 Days #12 tab 05/11/19 Previous Rx's Medication Instructions Recorded prednisone 60 mg PO DAILY 4 Days #12 tab 05/11/19 Allergies Allergy/AdvReac Type Severity Reaction Status Date / Time shellfish derived Allergy Severe Anaphylaxsi Unverified 05/11/19 12:40 s pertussis vaccine,adsorbed Allergy Mild unknown Unverified 05/11/19 12:40 [Pertussis Vaccine,Adsorbed] latex Allergy Skin Rash Unverified 05/11/19 12:40 silicone Allergy Skin Rash Unverified 05/11/19 12:40 General Stated Complaint: Allergic GAMALIEL: 2 Review of Systems All systems reviewed & are unremarkable except as noted in HPI and below Constitutional Constitutional: Denies chills and Denies fever(s) Cardiovascular Cardiovascular: Denies chest pain and Denies dyspnea Respiratory Respiratory: Denies cough and Denies dyspnea Gastrointestinal Gastrointestinal: Denies abdominal pain, Denies nausea and Denies vomiting PFSH Social History Smoking/Tobacco Use Status: Never Alcohol Intake: never Drug use: Never Substance use type: does not use Do you feel safe at home: Yes Do you feel safe in your relationship?: Yes Exam Const General: no acute distress Orientation: alert HENMT Head: normal to inspection Ears: external ears normal General nose exam: external nose normal Mouth: moist mucous membranes Eyes General: appearance normal, both eyes and all related structures Neck Neck: normal visual inspection Resp Effort & Inspection: normal respiratory effort and able to speak in complete sentences Cardio Rate: regular rate Skin General skin exam: elasticity normal Neuro General: alert and oriented x3 Extrem General: normal to inspection Psych Mental Status: mental status grossly normal Course Vital Signs Vital signs: Vital Signs Temperature 36.6 C 05/11/19 12:34 Pulse 85 05/11/19 12:34 Respiratory Rate 20 05/11/19 12:34 Blood Pressure 156/88 H 05/11/19 12:34 Pulse Oximetry 100 05/11/19 12:34 Temperature 36.6 C 05/11/19 12:34 Temperature Source Skin 05/11/19 12:34 Pulse 85 05/11/19 12:34 Respiratory Rate 20 05/11/19 12:34 Respiratory Effort 05/11/19 12:40 Respiratory Pattern Normal 05/11/19 12:40 Blood Pressure 156/88 H 05/11/19 12:34 Blood Pressure Position Sitting 05/11/19 12:34 Pulse Oximetry 100 05/11/19 12:34 Oxygen Delivery Method Room Air 05/11/19 12:34 Oxygen Flow Rate 0 05/11/19 12:34 Critical Care Time Critical Care Time Critical Care Time: Yes Total Critical Care Time: 45 Attestation: time spent giving IM epi and frequent reassessments in patient with anaphylaxis and potential to deteriorate at any time
[2019-05-11] MEDS: diphenhydrAMINE 50 MG/ML VIAL IVP (12:44)
[2019-05-11] MEDS: methylPREDNISolone SUCC 125 MG VIAL IVP (12:44)
[2019-05-11 15:09] VITALS: BP 156/88; PULSE 85; RESP 20; TEMP 36.6; O2SAT 100
== END 2019-05-11 15:10 | disposition home or self-care (01) ==
PROVIDERS: Emergency Provider Emergency Medicine; PCP Nurse Practitioner Family
DX: T78.02XA Anaphylactic reaction due to shellfish (crustaceans), initial encounter (principal)
CPT/HCPCS: 96365; 96372; 96375; 99284; J0171; J1200; J2930

== ENCOUNTER 2019-10-25 08:55 | Outpatient (REF) | payer OTHER, SELFPAY ==
[2019-10-25 19:14] LABS: BUN 13 mg/dL (7-18); CREATININE 0.74 mg/dL (0.70-1.30); Calcium 8.8 mg/dL (8.5-10.1); Chloride 104 mmol/L (98-107); Glucose 113 mg/dL (74-106); Potassium 4.7 mmol/L (3.5-5.1); Sodium 141 mmol/L (136-145)
== END 2019-10-25 09:15 ==
LOC: NCHCN 08:55
PROVIDERS: PCP Nurse Practitioner Family; Visit Provider Nurse Practitioner Family
DX: E11.9 Type 2 diabetes mellitus without complications (principal)
CPT/HCPCS: 80048; 83036

== ENCOUNTER 2020-09-17 04:17 | Outpatient (CLI) | payer OTHER, SELFPAY ==
[2020-09-17 10:17] LABS: Anion Gap 8.3 mmol/L (3-11); BUN 12 mg/dL (7-18); CO2 27.7 mmol/L (21.0-32.0); CREATININE 0.7 mg/dL (0.70-1.30); Calcium 8.9 mg/dL (8.5-10.1); Chloride 105 mmol/L (98-107); Glucose 100 mg/dL (74-106); Potassium 3.9 mmol/L (3.5-5.1); Sodium 141 mmol/L (136-145)
== END 2020-09-17 04:18 | disposition home or self-care (01) ==
LOC: LBO 04:17
PROVIDERS: PCP Nurse Practitioner Family; Visit Provider Nurse Practitioner Family
DX: E11.9 Type 2 diabetes mellitus without complications (principal)
CPT/HCPCS: 36415; 80048

== ENCOUNTER 2021-05-13 09:19 | Outpatient (REF) | payer OTHER, SELFPAY ==
[2021-05-13 15:16] LABS: Calculated LDL 102 mg/dL (<100); Cholesterol 167 mg/dL (<200); HDL Cholesterol 56 mg/dL (40-60); Triglyceride 46 mg/dL (<150)
[2021-05-14 00:35] LABS: Vitamin D 25 Total 14.8 ng/mL (30-100)
== END 2021-05-13 09:20 | disposition home or self-care (01) ==
LOC: NCHCN 09:19
PROVIDERS: PCP Nurse Practitioner Family; Visit Provider Nurse Practitioner Family
DX: E11.9 Type 2 diabetes mellitus without complications (principal); Z00.00 Encounter for general adult medical examination without abnormal findings; F32.9 Major depressive disorder, single episode, unspecified
CPT/HCPCS: 80061; 82306

== ENCOUNTER 2021-09-28 14:50 | Emergency (ER) | payer OTHER, SELFPAY ==
--- NOTE | 2021-09-28 15:00 | DI.RAD_ITS ---
Exam(s) XR LUMBAR SPINE COMPLETE EXAM: XR LUMBAR SPINE COMPLETE CLINICAL HISTORY: Back Pain. TECHNIQUE: 2D digital imaging was performed. COMPARISON: CR XR lumbar spine complete from 11/05/2018 FINDINGS: BONES: No fracture or destructive lesion. Vertebral bodies are unremarkable. No facet hypertrophy carlo ntified. DISKS: Intervertebral disc spaces are maintained. Endplate osteophytes lower thoracic spine. Minim al osteophytes lumbar spine. ALIGNMENT: Lumbar spinal alignment is within normal limits. SOFT TISSUE: Normal. IMPRESSION: Unremarkable radiographs of the lumbar spine. DATA REPOSITORY: RADIATION DOSE DELIVERED:
[2021-09-28 15:04] VITALS: BP 147/83; PULSE 94; RESP 16; TEMP 37; O2SAT 98
--- NOTE | 2021-09-28 15:13 | W.ED.GENAD ---
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 There is normal alignment. No fracture or broken bone. Alternate ice and heat. Take the muscle relaxers as prescribed. Please take Tylenol with food every 4-6 hours as needed for pain and swelling. Follow up with primary care provider in 3-5 days. Return to ED sooner if any worsening, loss of bowel or bladder control, numbness tingling or weakness in her legs, any numbness around her groin, or concerns. Increase oral fluids. Stand Alone Forms: Work Release Referrals: Frances Kim [Primary Care Provider] - 5 days Medical Decision Making 41-year-old male presents to the ER complaint of back pain which has been chronic on for approximately 2 weeks. He reports he is been taking Tylenol and has tried lidocaine patches however pain is getting worse. He denies any known injury. 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 Denies any radiation of the pain no numbness tingling no loss of bowel or bladder control, no saddle anesthesia. No history of back surgeries. She denies any dysuria. He does take Metformin is a diabetic. Has a past medical history of GERD, depression. Notes does have a history of thoracic back pain. Was going to physical therapy last treatment was in November 2020. L-spine x-rays ordered, urinalysis and Flexeril p.o. EXAM:? XR LUMBAR SPINE COMPLETE CLINICAL HISTORY: ? Back Pain.? TECHNIQUE:? 2D digital imaging was performed. COMPARISON:? CR XR lumbar spine complete from 11/05/2018 FINDINGS: BONES: No fracture or destructive lesion. Vertebral bodies are unremarkable. No facet hypertrophy identified. DISKS: Intervertebral disc spaces are maintained. ? Endplate osteophytes lower thoracic spine.? Minimal osteophytes lumbar spine. ALIGNMENT: Lumbar spinal alignment is within normal limits. SOFT TISSUE: Normal. IMPRESSION: Unremarkable radiographs of the lumbar spine. Patient given Flexeril prescription instructed on alternating ice and heat. Patient was given written out for the next few days if needed. Information was given on back exercises. Instructed to return for any red flag constipation, loss of bowel or bladder numbness or weakness. This text was generated using [employer] system, please disregard any oddities of phrase or misspellings. HPI General Mode of arrival: ambulatory. Date/Time Provider Initiated Documentation: 09/28/21 15:09. Limitations to Documentation: no limitations. Information obtained by: patient, RN notes reviewed and old records reviewed. HPI Narrative: 41-year-old male presents to the ER complaint of back pain which has been chronic on for approximately 2 weeks. He reports he is been taking Tylenol and has tried lidocaine patches however pain is getting worse. He denies any known injury. 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 Denies any radiation of the pain no numbness tingling no loss of bowel or bladder control, no saddle anesthesia. No history of back surgeries. She denies any dysuria. He does take Metformin is a diabetic. Has a past medical history of GERD, depression. Notes does have a history of thoracic back pain. Was going to physical therapy last treatment was in November 2020. Related Data Home Medications Medication Instructions Recorded Confirmed omeprazole magnesium 20 mg 20 mg PO DAILY 08/19/16 09/28/21 tablet,delayed release (Prilosec OTC) metformin 750 mg tablet,extended 1,500 mg PO DAILY 11/05/18 09/28/21 release 24 hr cyclobenzaprine 10 mg tablet 10 mg PO TID PRN #10 tab 09/28/21 Previous Rx's Medication Instructions Recorded cyclobenzaprine 10 mg tablet 10 mg PO TID PRN #10 tab 09/28/21 Allergies Allergy/AdvReac Type Severity Reaction Status Date / Time shellfish derived Allergy Severe Anaphylaxsi Unverified 09/28/21 15:09 s pertussis vaccine,adsorbed Allergy Mild unknown Unverified 09/28/21 15:09 [Pertussis Vaccine,Adsorbed] latex Allergy Skin Rash Unverified 09/28/21 15:09 silicone Allergy Skin Rash Unverified 09/28/21 15:09 General Stated Complaint: Nk/Back Pain GAMALIEL: 3 Review of Systems All systems reviewed & are unremarkable except as noted in HPI and below Musculoskeletal Musculoskeletal: Reports back pain PFSH All Active Problems (Updated 09/28/21 @ 16:15 by Cindy Clayton) Lumbar back sprain (Acute) Medical History (Updated 09/28/21 @ 16:15 by Cindy Clayton) Abnormal weight gain Binge eating Depression Elevated glucose GERD (gastroesophageal reflux disease) Kidney stone Low back pain chronic Sleep disorder Thoracic back pain Surgical History EGD - MAC (03/18/17) Social History Smoking/Tobacco Use Status: Never Smoking risk assessment performed?: Yes Alcohol Intake: never Drug use: Never Substance use type: does not use Do you feel safe at home: Yes Do you feel safe in your relationship?: Yes Exam Narrative Exam Narrative: Constitutional: Alert and oriented x3. Appears stated age. Normal body habitus. Head: Normocephalic, no trauma. Eyes: Pupils PERRL, Red reflex noted, EOM's intact. Eyelids symmetrical without lesions, discharge, or swelling. ENT: Bilateral TM's WNL, External ear normal to inspection, no mastoid TTP, swelling, or erythema, Nasal turbinates WNL, no nasal discharge. Normal dentition, Posterior pharynx WNL, no exudate. Chest: RRR, Normal S1, S2, distal pulses intact. Resp: Lungs clear to auscultation bilaterally, no wheezes, rales, or rhonchi. Abdomen: Soft, non-distended, Normoactive bowel sounds all 4 quads. Musculoskeletal: Normal gait, 5/5 strength to all four extremities. Tenderness mid spine approximately L1 right-sided paraspinous tenderness Skin: No suspicious rashes or lesions. Capillary refill less than 2 sec. Neurologic: Cranial nerves II-XII intact. Alert and oriented x 3. Motor: No deficits noted. Sensory: Intact bilaterally all 4 extremities. Reflexes: DTR's intact bilaterally.. Hematologic/Lymphatic: No ecchymosis, no lymphadenopathy. Course Vital Signs Vital signs: Vital Signs Temperature 37 C 09/28/21 15:04 Pulse 94 H 09/28/21 15:04 Respiratory Rate 16 09/28/21 15:04 Blood Pressure 147/83 H 09/28/21 15:04 Pulse Oximetry 98 09/28/21 15:04 Temperature 37 C 09/28/21 15:04 Temperature Source Skin 09/28/21 15:04 Pulse 94 H 09/28/21 15:04 Respiratory Rate 16 09/28/21 15:04 Respiratory Effort 09/28/21 15:04 Blood Pressure 147/83 H 09/28/21 15:04 Blood Pressure Position Sitting 09/28/21 15:04 Pulse Oximetry 98 09/28/21 15:04 Oxygen Delivery Method Room Air 09/28/21 15:04 Oxygen Flow Rate 0 09/28/21 15:04 Pain Level 8 09/28/21 15:04
[2021-09-28] MEDS: Cyclobenzaprine 10 MG TAB PO (15:25)
[2021-09-28 15:28] LABS: Bilirubin Negative (Negative); Blood Negative (Negative); Clarity Clear (Clear); Glucose Negative (Negative); Ketones Negative (Negative); Leukocyte Esterase Negative (Negative); Nitrite Negative (Negative); Specific Gravity >= 1.030 (1.005-1.025); pH 6.5 (5-8)
[2021-09-28] MEDS: Cyclobenzaprine 10 MG TAB, 3 TABS/BTL PO (15:31)
[2021-09-28 16:39] VITALS: BP 133/84; PULSE 92; O2SAT 98
[2021-09-28 16:40] VITALS: BP 133/84; PULSE 92; RESP 16; O2SAT 98
== END 2021-09-28 16:40 | disposition home or self-care (01) ==
PROVIDERS: Emergency Provider Registered Nurse Emergency; PCP Nurse Practitioner Family
DX: S33.5XXA Sprain of ligaments of lumbar spine, initial encounter (principal); X50.1XXA Overexertion from prolonged static or awkward postures, initial encounter
CPT/HCPCS: 99283; 72110; 81003

== ENCOUNTER 2021-11-08 07:53 | Emergency (ER) | payer OTHER, SELFPAY ==
[2021-11-08 07:59] VITALS: BP 144/79; PULSE 70; RESP 18; TEMP 36.7; O2SAT 100
--- NOTE | 2021-11-08 08:15 | DI.RAD_ITS ---
Exam(s) XR SOFT TISSUE NECK EXAM: XR SOFT TISSUE NECK CLINICAL HISTORY: Uvulitis TECHNIQUE: COMPARISON: No exams were available for comparison FINDINGS: Two views of the neck were obtained. The laryngeal tracheal soft tissue shadows appear intact, no ev idence of epiglottitis. No prevertebral soft tissue swelling. No foreign body identified. IMPRESSION: Negative soft tissue views of the neck. RADIATION DOSE DELIVERED: Total DLP
--- NOTE | 2021-11-08 08:20 | W.ED.GENAD ---
Discharge Plan Disposition Patient Disposition: HOME Condition: Stable Discharge Details Clinical Impression: Uvulitis Primary Care Provider: Frances Kim ED Provider: Gatito Patel Home Meds and New Rx's Prescriptions: New prednisone 20 mg tablet 40 mg PO DAILY Qty: 6 0RF Continued omeprazole magnesium [Prilosec OTC] 20 MG tablet,delayed release (DR/EC) 20 mg PO DAILY 0RF metformin 750 mg Tablet Extended Release 24 Hr 1,500 mg PO DAILY 0RF Discontinued cyclobenzaprine 10 mg tablet 10 mg PO TID PRN (Reason: muscle spasm) Qty: 10 0RF Discharge Instructions Instructions: Uvulitis (ED) Additional Instructions: If you start having any fever chills, difficulty breathing, inability to swallow, worsening of symptoms in any way you should return to the emergency department immediately for reevaluation. You have been placed on steroids to help reduce the swelling and please start the oral pills tomorrow morning. Please be mindful that these will increase your sugar and you should monitor your sugar multiple times throughout the day and reduce the amount of carbohydrates/sugars that you intake while on steroids. Referrals: Frances Kim [Primary Care Provider] - 3 days Medical Decision Making Patient presenting to the emergency department for chief complaint of throat swelling. Patient reports that he woke up this morning and had sensation of swelling in his throat that caused him to gag. Patient denies any fever chills, difficulty breathing or swallowing, cough, new medications, new foods, or inhaled events. Physical exam shows a swollen uvula otherwise completely benign exam. Exam not consistent with epiglottitis, pharyngitis, retropharyngeal abscess, Ludwigs or other life-threatening airway obstruction or infection. We will plan on performing soft tissue x-ray of the neck and giving patient steroids and NSAID. I suspect possible environmental cause but will perform strep testing with culture. Patient is otherwise in stable condition with no other worrisome findings. Patient did take Benadryl prior to arrival. Patient is negative for rapid strep test, soft tissue neck x-ray shows no acute findings. Patient reassessed and shows no worrisome worsening of symptoms and otherwise exam is unchanged. We will plan to discharge patient on p.o. steroids to start tomorrow and patient to monitor blood sugar closely given his history of diabetes. Thoroughly discussed return and monitoring precautions. Patient placed on care management list for follow-up appointment later this week but I do believe that patient stated he has a normally scheduled appointment which I feel is fine. After discussion of diagnosis and plan of care patient has no further needs, questions, or concerns and states clear understanding to return to the emergency department for any worsening symptoms. Medical Records Medical records reviewed: Yes I reviewed the patient's medical records. Imaging Data Radiologic Study: Imaging: X-Ray Radiologist's impression: Xray-Neck IMPRESSION: No acute findings. HPI General Mode of arrival: ambulatory. Date/Time Provider Initiated Documentation: 11/08/21 08:01. Limitations to Documentation: no limitations. Information obtained by: patient, RN notes reviewed and old records reviewed. History of Present Illness 41 year old M presents to the emergency department with the chief complaint of Throat swelling, Quality is described as other (denies pain), Patient started experiencing this hour(s) (1) and it has been constant. improves with No relieving factors improve symptom(s), No exacerbating factors reported . Patient notes no other symptoms.. Patient did receive the following treatments prior to arrival, other (Benadryl) Related Data Home Medications Medication Instructions Recorded Confirmed omeprazole magnesium 20 mg 20 mg PO DAILY 08/19/16 11/08/21 tablet,delayed release (Prilosec OTC) metformin 750 mg tablet,extended 1,500 mg PO DAILY 11/05/18 11/08/21 release 24 hr prednisone 20 mg tablet 40 mg PO DAILY #6 tab 11/08/21 Previous Rx's Medication Instructions Recorded prednisone 20 mg tablet 40 mg PO DAILY #6 tab 11/08/21 Allergies Allergy/AdvReac Type Severity Reaction Status Date / Time shellfish derived Allergy Severe Anaphylaxsi Unverified 11/08/21 08:03 s pertussis vaccine,adsorbed Allergy Mild unknown Unverified 11/08/21 08:03 [Pertussis Vaccine,Adsorbed] latex Allergy Skin Rash Unverified 11/08/21 08:03 silicone Allergy Skin Rash Unverified 11/08/21 08:03 General Stated Complaint: ThroatFB GAMALIEL: 3 Review of Systems Constitutional Constitutional: Denies chills, Denies fever(s) and Denies malaise ENT Ears, Nose, Mouth, and Throat: Reports as per HPI, Denies hoarseness, Denies lip swelling, Denies nasal congestion, Denies neck pain, Denies odynophagia, Denies post nasal drip, Denies sore throat, Reports throat swelling and Denies tongue swelling Cardiovascular Cardiovascular: Denies chest pain and Denies dyspnea Respiratory Respiratory: Denies cough and Denies dyspnea Gastrointestinal Gastrointestinal: Denies nausea, Denies odynophagia and Denies vomiting Musculoskeletal Musculoskeletal: Denies neck pain Allergic/Immunologic Allergic/Immunologic: Denies lip swelling, Reports throat swelling and Denies tongue swelling PFSH All Active Problems (Updated 11/08/21 @ 09:46 by Gatito Patel NP) Uvulitis (Acute) Medical History (Updated 11/08/21 @ 09:46 by Gatito Patel NP) Abnormal weight gain Binge eating Depression Elevated glucose GERD (gastroesophageal reflux disease) Kidney stone Low back pain chronic Sleep disorder Thoracic back pain Surgical History EGD - MAC (03/18/17) Social History Smoking/Tobacco Use Status: Never Smoking risk assessment performed?: Yes Alcohol Intake: former Drug use: Never Substance use type: does not use Do you feel safe at home: Yes Do you feel safe in your relationship?: Yes Exam Const General: cooperative, comfortable and no acute distress Orientation: alert and awake [facility] Head: normal to inspection, normocephalic and atraumatic Ears: hearing grossly normal bilaterally and TM's normal bilaterally General nose exam: external nose normal Face and sinus: no erythema Mouth: oral mucosae normal, no drooling, no muffled voice and no trismus Throat: posterior oropharynx normal, tonsils normal, uvula midline, no postnasal drainage and uvular edema Neck Neck: normal visual inspection, full ROM, no lymphadenopathy, no meningeal signs, trachea midline and supple Resp Effort & Inspection: normal respiratory effort and able to speak in complete sentences Auscultation: clear to auscultation bilaterally Cardio Rate: regular rate Rhythm: regular rhythm Heart Sounds: S1 normal, S2 normal, normal S1 and S2, no click, no gallops, no murmurs and no rubs Skin General skin exam: no rashes or lesions noted and dry skin (warm) Neuro General: patient alert, patient awake, patient oriented x3, gait normal and moves all extremities Cognition: normal cognition Speech: speech normal Course Vital Signs Vital signs: Vital Signs Temperature 36.7 C 11/08/21 07:59 Pulse 70 11/08/21 07:59 Respiratory Rate 18 11/08/21 07:59 Blood Pressure 144/79 H 11/08/21 07:59 Pulse Oximetry 100 11/08/21 07:59 Temperature 36.7 C 11/08/21 07:59 Temperature Source Temporal Artery Scan 11/08/21 07:59 Pulse 70 11/08/21 07:59 Respiratory Rate 18 11/08/21 07:59 Respiratory Effort Non-Labored 11/08/21 08:04 Respiratory Pattern Normal 11/08/21 08:04 Blood Pressure 144/79 H 11/08/21 07:59 Blood Pressure Position Sitting 11/08/21 07:59 Pulse Oximetry 100 11/08/21 07:59 Oxygen Delivery Method Room Air 11/08/21 07:59 Oxygen Flow Rate 0 11/08/21 07:59
[2021-11-08] MEDS: Dexamethasone 10 MG/ML VIAL IV (08:38)
[2021-11-08] MEDS: Ketorolac 15 MG/ML VIAL IVP (08:39)
--- NOTE | 2021-11-08 09:56 | NUR.NOTE ---
Edison Patel requestingn co
--- NOTE | 2021-11-08 09:56 | NUR.NOTE ---
Edison Patel requesting follow up with PCP David Salinas re: Uvulitis within 3 days.
--- NOTE | 2021-11-08 10:02 | DI.VRAD_ITS ---
PROCEDURE INFORMATION: Exam: XR Soft Tissue Neck Exam date and time: 11/08/2021 9:05 AM Age: 41 years old Clinical indication: Other: Uvulitis TECHNIQUE: Imaging protocol: XR of the soft tissues of the neck. COMPARISON: CR XR CHEST 2V PA LATERAL 06/05/2018 6:02 PM FINDINGS: Airway: Normal. No abnormal narrowing. Soft tissues: Normal. Normal epiglottis. Bones/joints: Unremarkable. IMPRESSION: No acute findings. Dictated and Authenticated by: Gatito Ballesteros MD. Ordering:RUMA Mederos MD
[2021-11-08 10:12] VITALS: BP 132/97; PULSE 70; RESP 16; TEMP 36.4; O2SAT 100
== END 2021-11-08 10:08 | disposition home or self-care (01) ==
PROVIDERS: Emergency Provider Nurse Practitioner Family; PCP Nurse Practitioner Family
DX: K12.2 Cellulitis and abscess of mouth (principal)
CPT/HCPCS: 87880; 96374; 96375; 99284; 70360; 87081; 99283; J1100; J1885

== ENCOUNTER 2022-05-12 03:30 | Outpatient (CLI) | payer OTHER, SELFPAY ==
[2022-05-12 08:08] LABS: Calculated LDL 103 mg/dL (<100); Cholesterol 169 mg/dL (<200); HDL Cholesterol 56 mg/dL (40-60); Triglyceride 51 mg/dL (<150)
[2022-05-12 08:31] LABS: Creatine Kinase 178 U/L (39-308)
[2022-05-12 09:22] LABS: Hemoglobin A1C 6.2 % (<5.7)
== END 2022-05-12 03:31 | disposition home or self-care (01) ==
LOC: LBO 03:30
PROVIDERS: PCP Nurse Practitioner Family; Visit Provider Nurse Practitioner Family
DX: E11.9 Type 2 diabetes mellitus without complications (principal); K21.9 Gastro-esophageal reflux disease without esophagitis; F32.9 Major depressive disorder, single episode, unspecified
CPT/HCPCS: 36415; 80061; 82550; 83036

== ENCOUNTER 2022-08-16 14:53 | Outpatient (REF) | payer OTHER, SELFPAY ==
[2022-08-18 11:57] LABS: COVID-19 RT-PCR UVMMC Result Negative (Negative)
== END 2022-08-16 14:54 | disposition home or self-care (01) ==
LOC: LBN 14:53
PROVIDERS: PCP Nurse Practitioner Family; Visit Provider Nurse Practitioner Family
DX: Z20.822 Contact with and (suspected) exposure to COVID-19 (principal)
CPT/HCPCS: U0003

== ENCOUNTER 2022-08-18 09:29 | Emergency (ER) | payer OTHER, SELFPAY ==
--- NOTE | 2022-08-18 09:30 | RT.EKG_ITS ---
APPROVED REPORT Exam: Resting ECG Reason for Exam: chest pain Patient Location: E HR:58 bpm ECG Measurements Heart Rate 58 AXIS ND 142 P 31 QRSd 110 QRS 0 QT 400 T 34 QTc 394 Conclusion Sinus bradycardia...rate< 60. Sinus. Normal axis. No STEMI. I have reviewed and interpreted ECG and agree with software generated interpretation.
[2022-08-18 09:38] VITALS: BP 139/77; PULSE 67; RESP 18; TEMP 37.1; O2SAT 98
--- NOTE | 2022-08-18 10:00 | DI.RAD_ITS ---
Exam(s) XR PORTABLE CHEST AP EXAM: XR PORTABLE CHEST AP CLINICAL HISTORY: chest pressure TECHNIQUE: 2D digital imaging was performed. COMPARISON: CR XR CHEST 2V PA LATERAL from 06/05/2018 FINDINGS: Leads overlie the chest. LUNGS: Clear. Stable minimal blunting at the right costophrenic angle. HEART: Normal size. AORTA: Normal diameter. BONES: Unremarkable for age. Soft tissues: Unremarkable. IMPRESSION: No acute findings. DATA REPOSITORY: RADIATION DOSE DELIVERED:
[2022-08-18 10:10] LABS: Abs Immature Grans 0.02 10^3/uL (0.0-0.06); Absolute Basophil Count 0.02 10^3/uL (0.0-0.2); Absolute Eosinophil Count 0.38 10^3/uL (0.0-0.7); Absolute Lymphocyte Count 1.57 10^3/uL (1.2-3.4); Absolute Monocyte Count 0.56 10^3/uL (0.1-0.8); Absolute Neutrophil Count 5.75 10^3/uL (1.2-6.7); Basophils % 0.2; Eosinophils % 4.6; Immature Grans % 0.2; Lymphocytes % 18.9; MCH 26.3 pg (27.0-33.0); MCV 85 fL (80-95); MPV 10.9 fL (8.0-11.0); Monocytes % 6.7; Neutrophils % 69.4; Platelet Count 263 10^3/uL (130-400); RBC 4.95 10^6/uL (4.36-5.78); RDW-SD 42.9 fL
--- NOTE | 2022-08-18 10:20 | NUR.NOTE ---
Nursing Note: Care of pt assumed at this time. No report received. Pt visualized and sitting up in bed, no distress noted.
[2022-08-18 10:27] LABS: ALT 32 U/L (16-63); AST 20 U/L (15-37); Albumin 3.9 g/dL (3.4-5.0); Alkaline Phosphatase 100 U/L (46-116); Anion Gap 4.9 mmol/L (3-11); BUN 7 mg/dL (7-18); Bilirubin, Total 0.5 mg/dL (0.2-1.0); CO2 31.1 mmol/L (21.0-32.0); CREATININE 0.8 mg/dL (0.70-1.30); Calcium 9.1 mg/dL (8.5-10.1); Chloride 103 mmol/L (98-107); Estimated GFR 114.74 (mL/min/1.73m2); Glucose 109 mg/dL (74-106); Magnesium 1.8 mg/dL (1.8-2.4); Potassium 3.8 mmol/L (3.5-5.1); Sodium 139 mmol/L (136-145); Total Protein 7.5 g/dL (6.4-8.2); Troponin I < 50 ng/L (<or=60)
[2022-08-18 10:29] VITALS: PULSE 55; RESP 18; O2SAT 98
[2022-08-18] MEDS: Albuterol/Ipratropium 3 ML UPD VIAL UPD (10:29)
[2022-08-18 10:57] LABS: COVID-19 PCR Negative (Negative); Influenza A PCR Negative (Negative); Influenza B PCR Negative (Negative); RSV PCR Negative (Negative)
[2022-08-18 10:59] LABS: Source Nasopharynx
[2022-08-18 11:04] VITALS: PULSE 63; RESP 16; O2SAT 100
[2022-08-18] MEDS: Albuterol 2.5 MG/3 ML INH SOLN VIAL UPD (11:04)
[2022-08-18 12:06] LABS: Troponin I < 50 ng/L (<or=60)
--- NOTE | 2022-08-18 12:21 | W.ED.GENAD ---
Discharge Plan Disposition Patient Disposition: Home Condition: Stable Discharge Details Clinical Impression: Upper respiratory infection, Atypical chest pain Primary Care Provider: Frances Kim ED Provider: Charley Fenton Home Meds and New Rx's Prescriptions: Continued omeprazole magnesium [Prilosec OTC] 20 MG tablet,delayed release (DR/EC) 20 mg PO DAILY metformin 750 mg Tablet Extended Release 24 Hr 1,500 mg PO DAILY Discharge Instructions Instructions: Chest Pain (ED), Upper Respiratory Infection (ED) Additional Instructions: Please follow-up with primary care physician in 24 hours Increase fluid hydration Humidifier in room at night, albuterol, 2 puffs every 4-6 hours as needed for cough, wheeze, shortness of breath Return earlier with new or worsening complaints Stand Alone Forms: Work Release Referrals: Frances Kim [Primary Care Provider] - Medical Decision Making Patient appears well, he presents with chest pressure which I suspect is secondary to upper respiratory symptoms, He is fluid negative His chest x-ray does not show evidence of acute abnormality He is afebrile and nontoxic with 2 negative troponins and feeling symptomatically improved after albuterol administration He will increase his hydration He will take [id number] medications Will follow-up with his primary care physician There is no hypoxia and patient clinically appears well Low suspicion for pulmonary embolism, no tachycardia, hypoxia, or tachypnea noted Return precautions reviewed and patient expressed understanding Recheck in 24 to 48 hours recommended Medical Records Medical records reviewed: Yes I reviewed the patient's medical records. Lab Data Lab results reviewed: Yes I reviewed the patient's lab results. HPI General Date/Time Provider Initiated Documentation: 08/18/22 09:45. HPI Narrative: This 42-year-old male with history of upper respiratory infection, chest pain presents with report of upper respiratory symptoms with chest pressure. Symptoms have been present for the past 3 days. Denies known history of asthma. Denies known exacerbating or alleviating factors. States that symptoms are constant, worse when he lays down at night. Has not attempted any qvbr-pug-[id number] medications. Denies any recent flights, surgeries, long drives, calf pain or swelling. Denies any nausea or vomiting. Denies any diaphoresis. Denies illicit drug use or early cardiac family history of disease Denies history of hypertension or hyperlipidemia. Denies known exertion and all components symptoms. Related Data Home Medications Medication Instructions Recorded Confirmed omeprazole magnesium 20 mg 20 mg PO DAILY 08/19/16 06/08/22 tablet,delayed release (Prilosec OTC) metformin 750 mg tablet,extended 1,500 mg PO DAILY 11/05/18 06/08/22 release 24 hr Allergies Allergy/AdvReac Type Severity Reaction Status Date / Time shellfish derived Allergy Severe Anaphylaxsi Unverified 06/08/22 07:50 s pertussis vaccine,adsorbed Allergy Mild unknown Unverified 06/08/22 07:50 [Pertussis Vaccine,Adsorbed] latex Allergy Skin Rash Unverified 06/08/22 07:50 silicone Allergy Skin Rash Unverified 06/08/22 07:50 General Stated Complaint: Chest Pain GAMALIEL: 2 PFSH All Active Problems (Updated 08/18/22 @ 12:22 by ORIANA Bain) Upper respiratory infection (Acute) Atypical chest pain (Acute) Uvular hypertrophy (Acute) Uvular edema (Acute) Medical History (Updated 08/18/22 @ 12:22 by ORIANA Bain) Abnormal weight gain Binge eating Depression Elevated glucose GERD (gastroesophageal reflux disease) Kidney stone Low back pain chronic Sleep disorder Thoracic back pain Surgical History EGD - MAC (03/18/17) Social History Smoking/Tobacco Use Status: Never Smoking risk assessment performed?: Yes Alcohol Intake: former Drug use: Never Substance use type: does not use Household members: spouse 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 Do you feel safe at home: Yes Do you feel safe in your relationship?: Yes Exam Const General: cooperative, comfortable and no acute distress Eyes Sclera: sclerae normal Resp Effort & Inspection: normal respiratory effort Auscultation: clear to auscultation bilaterally Cardio Rate: regular rate Rhythm: regular rhythm Skin General skin exam: no rashes or lesions noted Neuro General: patient alert Extrem Other: distal pulses intact no calf swelling or tenderness Course Vital Signs Vital signs: Vital Signs Temperature 37.1 C 08/18/22 09:38 Pulse 67 08/18/22 09:38 Respiratory Rate 18 08/18/22 09:38 Blood Pressure 139/77 08/18/22 09:38 Pulse Oximetry 98 08/18/22 09:38 Temperature 37.1 C 08/18/22 09:38 Temperature Source Temporal Artery Scan 08/18/22 09:38 Pulse 63 08/18/22 11:04 Respiratory Rate 16 08/18/22 11:04 Respiratory Effort 08/18/22 10:11 Respiratory Depth Normal 08/18/22 10:11 Respiratory Pattern Normal 08/18/22 10:11 Blood Pressure 139/77 08/18/22 09:38 Pulse Oximetry 100 08/18/22 11:04 Oxygen Delivery Method Room Air 08/18/22 09:38 Oxygen Flow Rate 0 08/18/22 09:38 Lab/Test Results Lab/Test Results: Laboratory Tests Range/Units 08/18/22 08/18/22 08/18/22 09:55 09:55 10:08 WBC (4.4-10.8) 10^3/uL 8.30 RBC (4.36-5.78) 10^6/uL 4.95 Hgb (13.5-17.5) g/dL 13.0 L Hct (40.0-50.0) % 42.0 MCV (80-95) fL 85 MCH (27.0-33.0) pg 26.3 L MCHC (32.0-36.0) % 31.0 L RDW (11.8-14.1) % 14.0 Plt Count (130-400) 10^3/uL 263 MPV (8.0-11.0) fL 10.9 Immature Gran % 0.2 Neutrophils % 69.4 Lymphocytes % 18.9 Monocytes % 6.7 Eosinophils % 4.6 Basophils % 0.2 Nucleated RBC % (0.0-0.3) % 0.0 Absolute Neutrophils (1.2-6.7) 10^3/uL 5.75 Absolute Lymphocytes (1.2-3.4) 10^3/uL 1.57 Absolute Monocytes (0.1-0.8) 10^3/uL 0.56 Absolute Eosinophils (0.0-0.7) 10^3/uL 0.38 Absolute Basophils (0.0-0.2) 10^3/uL 0.02 Sodium (136-145) mmol/L 139 Potassium (3.5-5.1) mmol/L 3.8 Chloride (98-107) mmol/L 103 Carbon Dioxide (21.0-32.0) mmol/L 31.1 Anion Gap (3-11) mmol/L 4.9 BUN (7-18) mg/dL 7 Creatinine (0.70-1.30) mg/dL 0.8 Est GFR (CKD-EPI 2020) (mL/min/1.73m2) 114.74 Glucose (74-106) mg/dL 109 H Calcium (8.5-10.1) mg/dL 9.1 Magnesium (1.8-2.4) mg/dL 1.8 Total Bilirubin (0.2-1.0) mg/dL 0.5 AST (15-37) U/L 20 ALT (16-63) U/L 32 Alkaline Phosphatase (46-116) U/L 100 Troponin I (<or=60) ng/L < 50 Total Protein (6.4-8.2) g/dL 7.5 Albumin (3.4-5.0) g/dL 3.9 COVID-19 Source Nasopharynx SARS-CoV-2 (PCR) (Negative) Negative Influenza Type A (PCR) (Negative) Negative Influenza Type B (PCR) (Negative) Negative RSV (PCR) (Negative) Negative Range/Units 08/18/22 11:43 WBC (4.4-10.8) 10^3/uL RBC (4.36-5.78) 10^6/uL Hgb (13.5-17.5) g/dL Hct (40.0-50.0) % MCV (80-95) fL MCH (27.0-33.0) pg MCHC (32.0-36.0) % RDW (11.8-14.1) % Plt Count (130-400) 10^3/uL MPV (8.0-11.0) fL Immature Gran % Neutrophils % Lymphocytes % Monocytes % Eosinophils % Basophils % Nucleated RBC % (0.0-0.3) % Absolute Neutrophils (1.2-6.7) 10^3/uL Absolute Lymphocytes (1.2-3.4) 10^3/uL Absolute Monocytes (0.1-0.8) 10^3/uL Absolute Eosinophils (0.0-0.7) 10^3/uL Absolute Basophils (0.0-0.2) 10^3/uL Sodium (136-145) mmol/L Potassium (3.5-5.1) mmol/L Chloride (98-107) mmol/L Carbon Dioxide (21.0-32.0) mmol/L Anion Gap (3-11) mmol/L BUN (7-18) mg/dL Creatinine (0.70-1.30) mg/dL Est GFR (CKD-EPI 2020) (mL/min/1.73m2) Glucose (74-106) mg/dL Calcium (8.5-10.1) mg/dL Magnesium (1.8-2.4) mg/dL Total Bilirubin (0.2-1.0) mg/dL AST (15-37) U/L ALT (16-63) U/L Alkaline Phosphatase (46-116) U/L Troponin I (<or=60) ng/L < 50 Total Protein (6.4-8.2) g/dL Albumin (3.4-5.0) g/dL COVID-19 Source SARS-CoV-2 (PCR) (Negative) Influenza Type A (PCR) (Negative) Influenza Type B (PCR) (Negative) RSV (PCR) (Negative)
[2022-08-18] MEDS: Albuterol HFA 8 GM 60 PUFF INH IH (12:36)
[2022-08-18] MEDS: Inhaler, Assist Device 1 EACH MC (12:37)
== END 2022-08-18 12:43 | disposition home or self-care (01) ==
PROVIDERS: Physician Assistant; Emergency Provider Physician Assistant; PCP Nurse Practitioner Family
DX: J06.9 Acute upper respiratory infection, unspecified (principal); R07.89 Other chest pain; Z20.822 Contact with and (suspected) exposure to COVID-19
CPT/HCPCS: 80053; 87637; 93005; 94640; 99284; 71045; 83735; 84484; 85025; 93010; 99285; J7613; J7620

== ENCOUNTER 2023-05-09 15:33 | Outpatient (REF) | payer OTHER, SELFPAY ==
[2023-05-11 13:32] LABS: Appearance Normal; Container Type 50 mL Conical; Double Forms 0.5 %; Grade 2.5 (>=2.5); Motile/Ejaculate 25.5 x10(6) (>=9.0); Motility 41 % (>=40); Semen Volume 1.5 mL (>=1.5); Sperm/mL 41.5 x10(6) (>=15.0); Strict Morph NL 5.5 % (>=4.0); Study Type Semen; pH 7.5 (>=7.2)
== END 2023-05-09 15:34 | disposition home or self-care (01) ==
LOC: LBN 15:33
PROVIDERS: PCP Nurse Practitioner Family; Visit Provider Obstetrics & Gynecology
DX: Z31.69 Encounter for other general counseling and advice on procreation (principal)
CPT/HCPCS: 89240; 89310

== ENCOUNTER 2023-05-10 16:10 | Outpatient (REF) | payer OTHER, SELFPAY ==
[2023-05-10 16:36] LABS: Calculated LDL 117 mg/dL (<100); Cholesterol 182 mg/dL (<200); HDL Cholesterol 55 mg/dL (40-60); Triglyceride 50 mg/dL (<150)
[2023-05-10 17:24] LABS: Hemoglobin A1C 6.2 % (<5.7)
== END 2023-05-10 16:11 | disposition home or self-care (01) ==
LOC: NCHCN 16:10
PROVIDERS: PCP Nurse Practitioner Family; Visit Provider Nurse Practitioner Family
DX: E11.9 Type 2 diabetes mellitus without complications (principal)
CPT/HCPCS: 80061; 83036

== ENCOUNTER 2024-01-05 15:43 | Outpatient (REF) | payer OTHER, SELFPAY ==
[2024-01-05 15:09] LABS: ALT 34 U/L (16-63); AST 20 U/L (15-37); Albumin 3.9 g/dL (3.4-5.0); Alkaline Phosphatase 96 U/L (46-116); Bilirubin, Direct 0.2 mg/dL (0.0-0.2); Bilirubin, Total 0.56 mg/dL (0.2-1.0); Creatine Kinase 215 U/L (39-308); Total Protein 7.4 g/dL (6.4-8.2)
[2024-01-05 15:49] LABS: Calculated LDL 75 mg/dL (<100); Cholesterol 147 mg/dL (<200); HDL Cholesterol 66 mg/dL (40-60); Triglyceride 34 mg/dL (<150)
[2024-01-06 09:02] LABS: HIV-1/2 Ag & Ab Screen Negative (Negative)
[2024-01-06 09:39] LABS: Hepatitis C Ab w Rflx HCV PCR Negative (Negative)
== END 2024-01-05 15:44 | disposition home or self-care (01) ==
LOC: NCHCN 15:43
PROVIDERS: PCP Nurse Practitioner Family; Visit Provider Nurse Practitioner Family
DX: R74.8 Abnormal levels of other serum enzymes (principal); E11.9 Type 2 diabetes mellitus without complications; Z13.220 Encounter for screening for lipoid disorders; Z11.4 Encounter for screening for human immunodeficiency virus [HIV]; Z11.59 Encounter for screening for other viral diseases
CPT/HCPCS: 80061; 80076; 82550; 86803; 87389

== ENCOUNTER 2024-02-27 06:53 | Emergency (ER) | payer OTHER, SELFPAY ==
[2024-02-27 07:02] VITALS: BP 151/91; PULSE 72; RESP 20; O2SAT 98
[2024-02-27 07:10] VITALS: BP 151/91; PULSE 72; RESP 20; TEMP 36.9; O2SAT 98
--- NOTE | 2024-02-27 07:37 | W.ED.GENAD ---
Discharge Plan Disposition Patient Disposition: Home Condition: Stable Discharge Details Clinical Impression: Otitis media Primary Care Provider: Frances Hines ED Provider: Dave De La Fuente Home Meds and New Rx's Prescriptions: New amoxicillin 875 mg tablet 875 mg PO BID Qty: 13 0RF Continued cholecalciferol (vitamin D3) 25 mcg (1,000 unit) capsule 25 mcg PO DAILY epinephrine [EpiPen 2-John] 0.3 mg/0.3 mL auto-injector 0.3 mg IM ONCE PRN ibuprofen 800 mg tablet 800 mg PO BID fluticasone propionate 50 mcg/actuation spray,suspension 1 spray intranasal BID Rx Instructions: administer into each nostril omeprazole magnesium [Prilosec OTC] 20 MG tablet,delayed release (DR/EC) 20 mg PO DAILY metformin 750 mg Tablet Extended Release 24 Hr 1,500 mg PO DAILY rosuvastatin 5 mg tablet 5 mg PO DAILY Discharge Instructions Instructions: Ear Infections in Adults (DC) Additional Instructions: Please drink plenty of fluid to stay hydrated. Take antibiotic as prescribed. Please contact your primary care physician to arrange follow-up. Return to the ER immediately for any worsening or new concerning symptoms. Referrals: Frances Hines [Primary Care Provider] - [facility] General Mode of arrival: ambulatory. Date/Time Provider Initiated Documentation: 02/27/24 07:18. Limitations to Documentation: no limitations. Information obtained by: patient. HPI Narrative: 43-year-old male with history of diabetes, here with chief complaint of ear pain. Patient notes he had sinus congestion and headache 7 to 8 days ago. He took a home COVID test that was +7 days ago. He notes since that time he has had daily progressive improvement in his symptoms. Yesterday he was feeling quite well until he developed left and then right ear pain that was worse this morning. Patient notes he feels like his ears are clogged. He denies associated congestion. No fever. No headache. Related Data Home Medications ?Medication ?Instructions ?Recorded ?Confirmed omeprazole magnesium 20 mg 20 mg PO DAILY 08/19/16 02/27/24 tablet,delayed release (Prilosec OTC) metformin 750 mg tablet,extended 1,500 mg PO DAILY 11/05/18 02/27/24 release 24 hr cholecalciferol (vitamin D3) 25 25 mcg PO DAILY 01/24/23 02/27/24 mcg (1,000 unit) capsule epinephrine 0.3 mg/0.3 mL 0.3 mg IM ONCE PRN 01/24/23 02/27/24 injection, auto-injector (EpiPen 2-John) fluticasone propionate 50 1 spray intranasal BID 01/24/23 02/27/24 mcg/actuation nasal spray,suspension ibuprofen 800 mg tablet 800 mg PO BID 01/24/23 02/27/24 amoxicillin 875 mg tablet 875 mg PO BID #13 tabs 02/27/24 rosuvastatin 5 mg tablet 5 mg PO DAILY 02/27/24 02/27/24 Previous Rx's ?Medication ?Instructions ?Recorded amoxicillin 875 mg tablet 875 mg PO BID #13 tabs 02/27/24 Allergies Allergy/AdvReac Type Severity Reaction Status Date / Time shellfish derived Allergy Severe Anaphylaxsi Unverified 02/27/24 07:04 s pertussis vaccine,adsorbed Allergy Mild unknown Unverified 02/27/24 07:04 (Pertussis Vaccine,Adsorbed) latex Allergy Skin Rash Unverified 02/27/24 07:04 silicone Allergy Skin Rash Unverified 02/27/24 07:04 Chocolate Covered Expresso Allergy Severe Anaphylaxis Uncoded 02/27/24 07:04 Wan General Stated Complaint: EarProblem GAMALIEL: 4 Review of Systems Constitutional Constitutional: Reports as per HPI and Denies fever(s) ENT Ears, Nose, Mouth, and Throat: Reports as per HPI Exam Const General: cooperative and no acute distress [facility] Head: normocephalic and atraumatic Ears: EAC's normal, mastoids normal, no periauricular adenopathy and TM abnormal bulging, erythematous and with loss of landmarks Mouth: moist mucous membranes Eyes Conjunctivae: normal conjunctivae Sclera: normal sclerae EOM: EOM intact bilaterally Resp Auscultation: clear to auscultation bilaterally, no rales, no rhonchi and no wheezes Cardio Rate: regular rate and not tachycardic Rhythm: regular rhythm Neuro General: patient alert, patient awake and tone normal Course Vital Signs Vital signs: Vital Signs Pulse 72 02/27/24 07:02 Respiratory Rate 20 02/27/24 07:02 Blood Pressure 151/91 H 02/27/24 07:02 Pulse Oximetry 98 02/27/24 07:02 Temperature 36.9 C 02/27/24 07:10 Temperature Source Temporal Artery Scan 02/27/24 07:10 Pulse 72 02/27/24 07:10 Respiratory Rate 20 02/27/24 07:10 Respiratory Effort Normal, Non-Labored 02/27/24 07:06 Blood Pressure 151/91 H 02/27/24 07:10 Blood Pressure Position Sitting 02/27/24 07:10 Pulse Oximetry 98 02/27/24 07:10 Oxygen Delivery Method Room Air 02/27/24 07:10 Oxygen Flow Rate 0 02/27/24 07:10 Medical Decision Making 43-year-old male with ran-jkjjxie-utkcxjceq diabetes, here with bilateral ear pain and fullness, 7 days post antigen positive test for COVID. Patient had progressive improvement in COVID symptoms over the past week. This ear pain and fullness is new and progressively worse since yesterday. He has bilateral otitis media on exam. Considered hypoglycemia. Fingerstick within normal limits. Concern for otitis media, viral versus potential superimposed bacterial infection. Plan to initiate treatment with amoxicillin. Usual and customary discharge instructions were reviewed with the patient. Quality:SDOH Health Related Social Needs: No Data to Display PFSH All Active Problems (Updated 02/27/24 @ 07:37 by Dave De La Fuente MD) Otitis media (Acute) Subfertility of couple (Acute) Uvular hypertrophy (Acute) Uvular edema (Acute) Medical History (Updated 02/27/24 @ 07:37 by Dave De La Fuente MD) GERD (gastroesophageal reflux disease) Thoracic back pain Sleep disorder Kidney stone Depression Abnormal weight gain Binge eating Low back pain chronic Elevated glucose Surgical History EGD - MAC (03/18/17) Social History Smoking/Tobacco Use Status: Never Smoking risk assessment performed?: Yes Alcohol Intake: former Drug use: Never Substance use type: does not use Household members: spouse 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
[2024-02-27] MEDS: Amoxicillin 875 MG TAB PO (07:49)
== END 2024-02-27 07:50 | disposition home or self-care (01) ==
LOC: ER 07:55
PROVIDERS: Emergency Provider Student in an Organized Health Care Education/Training Program; PCP Nurse Practitioner Family
DX: H92.03 Otalgia, bilateral (principal); H66.93 Otitis media, unspecified, bilateral; E11.9 Type 2 diabetes mellitus without complications
CPT/HCPCS: 36416; 82962; 99283; 99282

== ENCOUNTER 2024-08-06 12:21 | Outpatient (CLI) | payer OTHER, SELFPAY ==
--- NOTE | 2024-08-06 08:15 | DI.US_ITS ---
Exam(s) US SOFT TISSUE HEAD OR NECK EXAM: US SOFT TISSUE HEAD OR NECK CLINICAL HISTORY: bilat neck pain, cervicalgia-M54.2, just started Mounjaro.. TECHNIQUE: Ultrasound was performed using standard protocol. COMPARISON: No exams were available for comparison FINDINGS: Ultrasound of the neck reveals normal appearing bilateral lymph nodes. Largest are the bilateral sym metrical jugulodigastric lymph nodes, as is typically the case. There is no gross lymphadenopathy Thyroid gland size is normal. IMPRESSION: No significant findings on this ultrasound of the neck to explain this patient's symptoms. DATA REPOSITORY:
--- NOTE | 2024-08-06 08:15 | DI.RAD_ITS ---
Exam(s) XR CERVICAL SPINE COMP 4-5V EXAM: XR CERVICAL SPINE COMP 4-5V CLINICAL HISTORY: Cervicalgia, M54.2, neck pain, rule out OA. TECHNIQUE: 2D digital imaging was performed. COMPARISON: No exams were available for comparison FINDINGS: Five views. No evidence of fracture or listhesis nor offset of the spinal laminar line. There is mild disc space narrowing at C5-6 level and there also Luschka joint osteophytes evident at this level. Facet joints at this level appear unremarkable. Is no facet arthropathy. No cervical r ibs. IMPRESSION: Degenerative disc disease C5-6 level. DATA REPOSITORY: RADIATION DOSE DELIVERED:
== END 2024-08-06 12:41 ==
LOC: DI 12:22
PROVIDERS: PCP Nurse Practitioner Family; Visit Provider Nurse Practitioner Family
DX: M54.2 Cervicalgia (principal)
CPT/HCPCS: 76536; 72050

== ENCOUNTER 2025-03-01 00:41 | Outpatient (CLI) | payer OTHER, SELFPAY ==
[2025-03-01 09:14] LABS: Calculated LDL 71 mg/dL (<100); Cholesterol 131 mg/dL (<200); HDL Cholesterol 52 mg/dL (>or=40); Triglyceride 42 mg/dL (<150)
== END 2025-03-01 00:42 | disposition home or self-care (01) ==
LOC: LBO 00:41
PROVIDERS: PCP Nurse Practitioner Family; Visit Provider Nurse Practitioner Family
DX: E11.9 Type 2 diabetes mellitus without complications (principal)
CPT/HCPCS: 36415; 80061

== ENCOUNTER 2025-05-30 02:11 | Outpatient (CLI) | payer OTHER, SELFPAY ==
[2025-05-30 07:50] LABS: Anion Gap 5 mmol/L (3-11); BUN 11 mg/dL (9-23); CO2 29.0 mmol/L (20.0-31.0); Calcium 8.6 mg/dL (8.3-10.6); Chloride 104 mmol/L (98-107); Glucose 113 mg/dL (74-106); Potassium 3.6 mmol/L (3.5-5.1); Sodium 138 mmol/L (136-145)
== END 2025-05-30 02:12 | disposition home or self-care (01) ==
LOC: LBO 02:11
PROVIDERS: PCP Nurse Practitioner Family; Visit Provider Nurse Practitioner Family
DX: I10 Essential (primary) hypertension (principal)
CPT/HCPCS: 36415; 80048

== ENCOUNTER 2025-06-21 02:20 | Outpatient (CLI) | payer OTHER, SELFPAY ==
[2025-06-21 08:34] LABS: Anion Gap 8.8 mmol/L (3-11); BUN 13 mg/dL (9-23); CO2 27.2 mmol/L (20.0-31.0); Calcium 9.1 mg/dL (8.3-10.6); Chloride 106 mmol/L (98-107); Glucose 114 mg/dL (74-106); Potassium 3.8 mmol/L (3.5-5.1); Sodium 142 mmol/L (136-145)
== END 2025-06-21 02:21 | disposition home or self-care (01) ==
PROVIDERS: PCP Nurse Practitioner Family; Visit Provider Nurse Practitioner Family
DX: I10 Essential (primary) hypertension (principal)
CPT/HCPCS: 36415; 80048

== ENCOUNTER 2025-07-17 02:31 | Outpatient (CLI) | payer OTHER, SELFPAY ==
[2025-07-17 08:05] LABS: Anion Gap 7.3 mmol/L (3-11); BUN 12 mg/dL (9-23); CO2 28.7 mmol/L (20.0-31.0); Calcium 8.6 mg/dL (8.3-10.6); Chloride 103 mmol/L (98-107); Glucose 117 mg/dL (74-106); Potassium 3.9 mmol/L (3.5-5.1); Sodium 139 mmol/L (136-145)
== END 2025-07-17 02:32 | disposition home or self-care (01) ==
LOC: LBO 02:31
PROVIDERS: PCP Nurse Practitioner Family; Visit Provider Nurse Practitioner Family
DX: I10 Essential (primary) hypertension (principal)
CPT/HCPCS: 36415; 80048